=== PATIENT | male | born 1955 | race African-American/Black ===

== ENCOUNTER 2016-08-25 04:20 | Emergency (ER) | payer BC ==
[2016-08-25] MEDS ORDERED: PANTOPRAZOLE SODIUM 40 MG VIAL IV PRN (05:03)
[2016-08-25] MEDS ORDERED: NORMAL SALINE 1000 ML 1,000 ML IV PRN (05:03)
[2016-08-25] MEDS ORDERED: ONDANSETRON HCL INJ/PF 4 MG/2 ML SDV IV ONE (05:03)
[2016-08-25] MEDS ORDERED: PANTOPRAZOLE SODIUM 40 MG VIAL IV ONE (05:03)
--- NOTE | 2016-08-25 05:16 | ER Document Report ---
ED Medical Screen (RME) - General Chief Complaint: Vomiting Stated Complaint: VOMITING BLOOD Time seen by provider: 05:15 Mode of Arrival: Ambulatory Information source: Patient TRAVEL OUTSIDE OF THE [place] IN LAST 30 DAYS: No - HPI Patient complains to provider of: vomiting blood, history of ascites/cirrhosis, esophageal varices - Related Data Allergies/Adverse Reactions: No Known Drug Allergies Allergy (Verified 02/13/12 14:54) Past Medical History - Social History Chew tobacco use (# tins/day): No Frequency of alcohol use: None Drug Abuse: None - Past Medical History Cardiac Medical History: Reports: Hx Coronary Artery Disease - stent, Hx Heart Attack - ? 7 yrs ago, Hx Hypercholesterolemia, Hx Hypertension - meds x 7 yrs Denies: Hx Atrial Fibrillation, Hx Congestive Heart Failure, Hx Peripheral Vascular Disease, Hx Heart Murmur Pulmonary Medical History: Reports: Hx Pneumonia Denies: Hx Asthma, Hx Bronchitis, Hx COPD, Hx Tuberculosis Neurological Medical History: Denies: Hx Cerebrovascular Accident, Hx Seizures Renal/ Medical History: Denies: Hx Benign Prostatic Hyperplasia, Hx End Stage Renal Disease, Hx Kidney Stones, Hx Peritoneal Dialysis Malignancy Medical History: Denies Hx Leukemia GI Medical History: Reports: Hx Gastroesophageal Reflux Disease. Denies: Hx Crohn's Disease, Hx Irritable Bowel, Hx Liver Failure, Hx Ulcer Musculoskeltal Medical History: Denies Hx Arthritis Infectious Medical History: Denies: Hx HIV Past Surgical History: Reports: Hx Cardiac Catheterization - stents 2008, Hx Cardiac Surgery - Stent. Denies: Hx Colostomy, Hx Pacemaker - Immunizations Hx Diphtheria, Pertussis, Tetanus Vaccination: Yes Physical Exam - Vital signs Vitals: Temp Pulse Resp BP Pulse Ox 97.6 F 68 16 99/62 L 84 L 08/25/16 04:54 08/25/16 04:54 08/25/16 04:54 08/25/16 04:54 08/25/16 04:54 Course - Vital Signs Vital signs: Temp Pulse Resp BP Pulse Ox 97.6 F 68 16 99/62 L 84 L 08/25/16 04:54 08/25/16 04:54 08/25/16 04:54 08/25/16 04:54 08/25/16 04:54
[2016-08-25] MEDS ORDERED: NORMAL SALINE 500 ML with OCTREOTIDE ACETATE 500 MCG IV PRN ×6 (05:21→11:00)
[2016-08-25] MEDS ORDERED: OCTREOTIDE ACETATE INJ/PF 100 MCG/1 ML SDV IV ONE (05:21)
--- NOTE | 2016-08-25 05:29 | ER Document Report ---
Doctor's Note Notes: 08/25/16 05:27 Patient is a pleasant 61-year-old male who presents for complaint of vomiting blood 6 times. He's been vomiting up with red blood and clots. Last emesis was proximately 2 hours ago. No abdominal pain. No chest pain. Has history of esophageal varices. Had some varices clipped 6 years ago. He's not had a scope since than. He was followed by Dr. Mohan, but has not seen him in many years due to insurance issues. Patient has no other complaints at this time. Only blood thinning medication he takes is aspirin. He does have a history of cirrhosis of the liver. He has not drank alcohol in 5 years. On exam patient is well-appearing. His heart rate is normal. His blood pressure is normal. He is currently not actively vomiting blood. We'll start him on octreotide drip. I will check his blood work. Laboratory evaluation will be started for the morning ER physician upon his arrival. Patient will be closely monitored until the morning ER physician arrives. 08/25/16 05:28 Dictation of this chart was performed using voice recognition software; therefore, there may be some unintended grammatical errors.
[2016-08-25] MEDS ORDERED: NORMAL SALINE IV PRN ×2 (06:14)
[2016-08-25] MEDS ORDERED: OCTREOTIDE ACETATE IV PRN ×2 (06:14)
[2016-08-25] MEDS ORDERED: OCTREOTIDE ACETATE INJ/PF 100 MCG/1 ML SDV IV PRN (06:16)
[2016-08-25 06:17] LABS: PROTHROMBIN TIME 21.9 SEC (11.4-15.4)
[2016-08-25 06:34] LABS: ALANINE AMINOTRANSFERASE 45 U/L (21-72); ALBUMIN 2.4 g/dL (3.5-5.0); ALKALINE PHOSPHATASE 105 U/L (38-126); ANION GAP 8 (5-19); ASPARTATE AMINO TRANSFERASE 78 U/L (17-59); BILIRUBIN,TOTAL 2.6 mg/dL (0.2-1.3); BLOOD UREA NITROGEN 24 mg/dL (7-20); CALCIUM 8.5 mg/dL (8.4-10.2); CARBON DIOXIDE 23 mmol/L (22-30); CHLORIDE 108 mmol/L (98-107); CREATININE RESULT 0.71 mg/dL (0.52-1.25); GLUCOSE 92 mg/dL (75-110); LIPASE 173.5 U/L (23-300); POTASSIUM 4.4 mmol/L (3.6-5.0); SODIUM 139.4 mmol/L (137-145); TOTAL PROTEIN 6.7 g/dL (6.3-8.2)
[2016-08-25 06:42] LABS: ALCOHOL < 10 mg/dL (NONE DETECTED)
[2016-08-25 06:47] LABS: ABSOLUTE EOSINOPHILS # (AUTO) 0.1 10^3/uL (0.0-0.6); ABSOLUTE LYMPHOCYTES (AUTO) 0.4 10^3/uL (0.5-4.7); ABSOLUTE MONOCYTES (AUTO) 0.5 10^3/uL (0.1-1.4); ABSOLUTE NEUT (AUTO) 4.7 10^3/uL (1.7-8.2); BASOPHILS % (AUTO) 0.7 % (0-2); HEMATOCRIT 23.7 % (37.9-51.0); HEMOGLOBIN 8.1 g/dL (13.5-17.0); HGB HCT DIFFERENCE 0.6; LYMPHOCYTES % (AUTO) 7.6 % (13-45); MEAN CORPUSCULAR HEMOGLOBIN 31.9 pg (27.0-33.4); MEAN CORPUSCULAR VOLUME 94 fl (80-97); MONOCYTES % (AUTO) 8.6 % (3-13); RED BLOOD COUNT 2.52 10^6/uL (4.35-5.55); RED CELL DISTRIBUTION WIDTH 14.3 % (11.5-14.0); SEGMENTED NEUTROPHILS % (AUTO) 82.1 % (42-78); WHITE BLOOD COUNT 5.7 10^3/uL (4.0-10.5)
[2016-08-25] MEDS ORDERED: NORMAL SALINE 250 ML IV PRN ×2 (08:22)
[2016-08-25 08:49] LABS: APPEARANCE,URINE CLEAR; BILIRUBIN,URINE NEGATIVE (NEGATIVE); GLUCOSE, URINE NEGATIVE (NEGATIVE); KETONES,URINE TRACE mg/dL (NEGATIVE); LEUKOCYTE ESTERASE,URINE NEGATIVE (NEGATIVE); NITRITE,URINE NEGATIVE (NEGATIVE); PROTEIN,URINE NEGATIVE (NEGATIVE); UROBILINOGEN,URINE NEGATIVE mg/dL (<2.0)
[2016-08-25] MEDS ORDERED: NORMAL SALINE 1000 ML 1,000 ML IV ONE (09:56)
--- NOTE | 2016-08-25 10:26 | ER Document Report ---
ED General - General Chief Complaint: Vomiting Stated Complaint: VOMITING BLOOD Mode of Arrival: Ambulatory TRAVEL OUTSIDE OF THE [place] IN LAST 30 DAYS: No - HPI Patient complains to provider of: vomiting blood Notes: Patient coming in to our facility today after vomiting blood. Patient has a history of liver cirrhosis due to alcoholism has a history of variceal bleeds and passed states last time he had any prescription or banding performed was 2011. Patient states this morning workup vomited bright red blood with blood clots approximate 6 times. Patient was initially seen and evaluated by the night physician patient was started on octreotide and Protonix drip. Upon my evaluation patient is alert oriented with no complaints. Patient states last time he had any scopes done was performed here this facility by Dr. Mohan. Patient denies fevers chills nausea vomiting abdominal pain chest pain at this time. - Related Data Allergies/Adverse Reactions: No Known Drug Allergies Allergy (Verified 02/13/12 14:54) Past Medical History - General Information source: Patient - Social History Smoking Status: Never Smoker Chew tobacco use (# tins/day): No Frequency of alcohol use: None Drug Abuse: None Family History: Reviewed & Not Pertinent Patient has suicidal ideation: No Patient has homicidal ideation: No - Past Medical History Cardiac Medical History: Reports: Hx Coronary Artery Disease - stent, Hx Heart Attack - ? 7 yrs ago, Hx Hypercholesterolemia, Hx Hypertension - meds x 7 yrs Denies: Hx Atrial Fibrillation, Hx Congestive Heart Failure, Hx Peripheral Vascular Disease, Hx Heart Murmur Pulmonary Medical History: Reports: Hx Pneumonia Denies: Hx Asthma, Hx Bronchitis, Hx COPD, Hx Tuberculosis Neurological Medical History: Denies: Hx Cerebrovascular Accident, Hx Seizures Renal/ Medical History: Denies: Hx Benign Prostatic Hyperplasia, Hx End Stage Renal Disease, Hx Kidney Stones, Hx Peritoneal Dialysis Malignancy Medical History: Denies Hx Leukemia GI Medical History: Reports: Hx Gastroesophageal Reflux Disease. Denies: Hx Crohn's Disease, Hx Irritable Bowel, Hx Liver Failure, Hx Ulcer Musculoskeltal Medical History: Denies Hx Arthritis Infectious Medical History: Denies: Hx HIV Past Surgical History: Reports: Hx Cardiac Catheterization - stents 2008, Hx Cardiac Surgery - Stent. Denies: Hx Colostomy, Hx Pacemaker - Immunizations Hx Diphtheria, Pertussis, Tetanus Vaccination: Yes Hx Pneumococcal Vaccination: 06/17/10 Review of Systems - Review of Systems Constitutional: No symptoms reported EENT: No symptoms reported Cardiovascular: No symptoms reported Respiratory: No symptoms reported Gastrointestinal: Blood in vomit, Rectal bleeding Genitourinary: No symptoms reported Male Genitourinary: No symptoms reported Musculoskeletal: No symptoms reported Skin: No symptoms reported Hematologic/Lymphatic: No symptoms reported Neurological/Psychological: No symptoms reported -: Yes All other systems reviewed and negative Physical Exam - Vital signs Vitals: Temp Pulse Resp BP Pulse Ox 97.6 F 68 16 99/62 L 84 L 08/25/16 04:54 08/25/16 04:54 08/25/16 04:54 08/25/16 04:54 08/25/16 04:54 Interpretation: Normal - General General appearance: Appears well, Alert - HEENT Head: Normocephalic, Atraumatic Eyes: Normal Pupils: PERRL - Respiratory Respiratory status: No respiratory distress Chest status: Nontender Breath sounds: Normal Chest palpation: Normal - Cardiovascular Rhythm: Regular Heart sounds: Normal auscultation Murmur: No - Abdominal Inspection: Normal Distension: No distension Bowel sounds: Normal Tenderness: Nontender Organomegaly: No organomegaly - Rectal Stool: Black - Back Back: Normal, Nontender - Extremities General upper extremity: Normal inspection, Nontender, Normal color, Normal ROM , Normal temperature General lower extremity: Normal inspection, Nontender, Normal color, Normal ROM , Normal temperature, Normal weight bearing. No: Chon's sign - Neurological Neuro grossly intact: Yes Cognition: Normal Orientation: AAOx4 Evergreen Coma Scale Eye Opening: Spontaneous Evergreen Coma Scale Verbal: Oriented Evergreen Coma Scale Motor: Obeys Commands Evergreen Coma Scale Total: 15 Speech: Normal Motor strength normal: LUE, RUE, LLE, RLE Sensory: Normal - Psychological Associated symptoms: Normal affect, Normal mood - Skin Skin Temperature: Warm Skin Moisture: Dry Skin Color: Normal Course - Re-evaluation Re-evalutation: 08/25/16 10:24 Patient's lab work shows*bicytopenia with a hemoglobin 8.1. Type and screen was ordered ordered transfusion of 2 units of blood. Total initial nursing staff to place 2 IVs. Did discuss case with Dr. Hart of [facility] requesting 2 units of blood to be transfused for the patient is transferred. Delay in IV being established delay and type and screen being performed. Also delay in transit is no blood due to laboratory clerical error. Patient will be continually monitored here in ER. Patient's blood pressure did go to the low 100s will start patient on a fluid bolus. Patient will be transferred fused at least 2 units of blood now this time we will repeat his hemoglobin possibility transfer using 3 units of blood. Patient continues to be alert and has no complaints. 08/25/16 14:38 Patient was evaluated time transfer stable for transfer. - Vital Signs Vital signs: Temp Pulse Resp BP Pulse Ox 98.1 F 70 17 151/74 H 100 08/25/16 13:46 08/25/16 12:20 08/25/16 13:46 08/25/16 13:46 08/25/16 13:46 - Laboratory Result Diagrams: 08/25/16 10:30 08/25/16 05:56 Laboratory results interpreted by me: 08/25/16 08/25/16 08/25/16 05:56 05:56 05:56 RBC 2.52 L Hgb 8.1 L Hct 23.7 L RDW 14.3 H Plt Count 69 L Seg Neutrophils % 82.1 H Lymphocytes % 7.6 L Absolute Lymphocytes 0.4 L PT 21.9 H APTT 36.0 H Chloride 108 H BUN 24 H Total Bilirubin 2.6 H AST 78 H Albumin 2.4 L Urine Ketones Urine Ascorbic Acid Crossmatch 08/25/16 08/25/16 08/25/16 08:25 08:40 10:30 RBC 2.43 L Hgb 7.8 L Hct 22.8 L RDW 14.7 H Plt Count 51 L Seg Neutrophils % Lymphocytes % Absolute Lymphocytes PT APTT Chloride BUN Total Bilirubin AST Albumin Urine Ketones TRACE H Urine Ascorbic Acid 40 H Crossmatch See Detail 08/25/16 10:30 RBC Hgb Hct RDW Plt Count Seg Neutrophils % Lymphocytes % Absolute Lymphocytes PT APTT Chloride BUN Total Bilirubin AST Albumin Urine Ketones Urine Ascorbic Acid Crossmatch See Detail Critical Care Note - Critical Care Note Total time excluding time spent on procedures (mins): 40 Comments: Patient with multiple evaluations for GI bleed with a history of esophageal varices Discharge - Discharge Clinical Impression: history of esophageal variceals, Thrombocytopenia GI bleed Qualifiers: GI bleed type/associated pathology: unspecified gastrointestinal hemorrhage type Qualified Code(s): K92.2 - Gastrointestinal hemorrhage, unspecified Condition: Good Disposition: [facility] Referrals: VADIM KELLY MD [Primary Care Provider] - Follow up as needed
[2016-08-25 10:28] LABS: URINE BARBITURATES SCREEN NEGATIVE; URINE METHADONE SCREEN NEGATIVE; URINE OPIATES LOW NEGATIVE; URINE PHENCYCLIDINE SCREEN NEGATIVE
[2016-08-25 10:44] LABS: HEMATOCRIT 22.8 % (37.9-51.0); HGB HCT DIFFERENCE 0.6; MEAN CORPUSCULAR HGB CONC 34.1 g/dL (32.0-36.0); MEAN CORPUSCULAR VOLUME 94 fl (80-97); RED BLOOD COUNT 2.43 10^6/uL (4.35-5.55); RED CELL DISTRIBUTION WIDTH 14.7 % (11.5-14.0); WHITE BLOOD COUNT 4.7 10^3/uL (4.0-10.5)
[2016-08-25 11:07] LABS: HEMOGLOBIN 7.8 g/dL (13.5-17.0)
[2016-08-25 13:58] VITALS: BP 151/74
== END 2016-08-25 14:35 | disposition short-term general hospital (02) ==
LOC: ER 04:20
DX: K92.0 Hematemesis (principal); D69.6 Thrombocytopenia, unspecified; I10 Essential (primary) hypertension; I25.10 Atherosclerotic heart disease of native coronary artery without angina pectoris; E78.00 Pure hypercholesterolemia, unspecified; Z79.82 Long term (current) use of aspirin; I25.2 Old myocardial infarction
CPT/HCPCS: 99291; 96361; 96375; 96365; 96366; 86900; 86901; 36415; 36430; 86850; 80307 ×2; 83690; 85025; 85027; 85610; 85730; 82272; 80053; 81001; 86920; P9016; J2354 ×2; S0164; J2405; J7030; J7040

== ENCOUNTER → 2016-10-22 | Outpatient (CLI) | payer BC ==
[2016-10-22 09:20] LABS: HEMATOCRIT 32.5 % (37.9-51.0); HGB HCT DIFFERENCE 0.5; MEAN CORPUSCULAR HEMOGLOBIN 30.8 pg (27.0-33.4); MEAN CORPUSCULAR HGB CONC 33.9 g/dL (32.0-36.0); MEAN CORPUSCULAR VOLUME 91 fl (80-97); RED BLOOD COUNT 3.57 10^6/uL (4.35-5.55); RED CELL DISTRIBUTION WIDTH 15.2 % (11.5-14.0); WHITE BLOOD COUNT 3.6 10^3/uL (4.0-10.5)
[2016-10-22 09:22] LABS: PROTHROMBIN TIME 18.4 SEC (11.4-15.4)
[2016-10-22 09:40] LABS: ALANINE AMINOTRANSFERASE 53 U/L (21-72); ALBUMIN 2.9 g/dL (3.5-5.0); ALKALINE PHOSPHATASE 156 U/L (38-126); ANION GAP 7 (5-19); ASPARTATE AMINO TRANSFERASE 83 U/L (17-59); BILIRUBIN,DIRECT 0.8 mg/dL (0.0-0.4); BILIRUBIN,TOTAL 1.7 mg/dL (0.2-1.3); BLOOD UREA NITROGEN 10 mg/dL (7-20); CALCIUM 8.8 mg/dL (8.4-10.2); CARBON DIOXIDE 27 mmol/L (22-30); CHLORIDE 102 mmol/L (98-107); CREATININE RESULT 0.94 mg/dL (0.52-1.25); GLUCOSE 87 mg/dL (75-110); POTASSIUM 4.1 mmol/L (3.6-5.0); SODIUM 135.6 mmol/L (137-145); TOTAL PROTEIN 8.6 g/dL (6.3-8.2)
== END ==
LOC: OD 08:09
PROVIDERS: ATTEND Internal Medicine Gastroenterology
DX: R18.8 Other ascites (principal); K70.31 Alcoholic cirrhosis of liver with ascites
CPT/HCPCS: 36415; 80048; 80076; 82105; 85027; 85610

== ENCOUNTER → 2016-12-03 | Outpatient (CLI) | payer BC ==
[2016-12-03 09:48] LABS: HEMATOCRIT 32.6 % (37.9-51.0); HGB HCT DIFFERENCE 0.4; MEAN CORPUSCULAR HEMOGLOBIN 30.8 pg (27.0-33.4); MEAN CORPUSCULAR HGB CONC 33.6 g/dL (32.0-36.0); MEAN CORPUSCULAR VOLUME 92 fl (80-97); RED BLOOD COUNT 3.56 10^6/uL (4.35-5.55); RED CELL DISTRIBUTION WIDTH 16.1 % (11.5-14.0)
[2016-12-03 09:52] LABS: PROTHROMBIN TIME 18.2 SEC (11.4-15.4)
[2016-12-03 10:13] LABS: ALANINE AMINOTRANSFERASE 60 U/L (21-72); ALBUMIN 2.9 g/dL (3.5-5.0); ALKALINE PHOSPHATASE 163 U/L (38-126); ANION GAP 9 (5-19); ASPARTATE AMINO TRANSFERASE 97 U/L (17-59); BILIRUBIN,DIRECT 0.6 mg/dL (0.0-0.4); BLOOD UREA NITROGEN 11 mg/dL (7-20); CALCIUM 8.7 mg/dL (8.4-10.2); CARBON DIOXIDE 23 mmol/L (22-30); CHLORIDE 103 mmol/L (98-107); CREATININE RESULT 0.98 mg/dL (0.52-1.25); GLUCOSE 89 mg/dL (75-110); SODIUM 134.6 mmol/L (137-145); TOTAL PROTEIN 8.5 g/dL (6.3-8.2)
== END ==
LOC: OD 09:08
PROVIDERS: ATTEND Physician Assistant Surgical
DX: K70.31 Alcoholic cirrhosis of liver with ascites (principal); R94.5 Abnormal results of liver function studies; D69.6 Thrombocytopenia, unspecified
CPT/HCPCS: 36415; 80053; 85027; 85610

== ENCOUNTER → 2017-03-18 | Outpatient (CLI) | payer BC ==
[2017-03-18 13:40] LABS: PROTHROMBIN TIME 17.4 SEC (11.4-15.4)
[2017-03-18 13:42] LABS: HEMATOCRIT 32.9 % (37.9-51.0); HEMOGLOBIN 11.5 g/dL (13.5-17.0); HGB HCT DIFFERENCE 1.6; MEAN CORPUSCULAR VOLUME 94 fl (80-97); RED BLOOD COUNT 3.49 10^6/uL (4.35-5.55); RED CELL DISTRIBUTION WIDTH 13.8 % (11.5-14.0)
[2017-03-18 13:58] LABS: ALANINE AMINOTRANSFERASE 54 U/L (21-72); ALBUMIN 3.5 g/dL (3.5-5.0); ALKALINE PHOSPHATASE 131 U/L (38-126); ANION GAP 11 (5-19); ASPARTATE AMINO TRANSFERASE 82 U/L (17-59); BILIRUBIN,DIRECT 0.8 mg/dL (0.0-0.4); BILIRUBIN,TOTAL 1.4 mg/dL (0.2-1.3); BLOOD UREA NITROGEN 19 mg/dL (7-20); CALCIUM 9.2 mg/dL (8.4-10.2); CARBON DIOXIDE 24 mmol/L (22-30); CHLORIDE 102 mmol/L (98-107); CREATININE RESULT 1.13 mg/dL (0.52-1.25); GLUCOSE 75 mg/dL (75-110); SODIUM 136.7 mmol/L (137-145); TOTAL PROTEIN 8.6 g/dL (6.3-8.2)
== END ==
LOC: OD 12:03
PROVIDERS: ATTEND Physician Assistant Surgical
DX: I85.00 Esophageal varices without bleeding (principal); K70.31 Alcoholic cirrhosis of liver with ascites; D69.6 Thrombocytopenia, unspecified; R94.5 Abnormal results of liver function studies
CPT/HCPCS: 36415; 80053; 82105; 85027; 85610

== ENCOUNTER 2017-03-22 09:35 | Inpatient (IN) | payer BC ==
[2017-03-22] MEDS ORDERED: PANTOPRAZOLE SODIUM 40 MG VIAL IV ONE (09:42)
[2017-03-22] MEDS ORDERED: OCTREOTIDE ACETATE INJ/PF 100 MCG/1 ML SDV IV ONE ×2 (09:42→12:00)
[2017-03-22] MEDS ORDERED: NORMAL SALINE 1000 ML 1,000 ML IV PRN (09:42)
[2017-03-22] MEDS ORDERED: NORMAL SALINE 500 ML with OCTREOTIDE ACETATE 500 MCG IV PRN ×4 (09:42→12:27)
--- NOTE | 2017-03-22 09:45 | ER Document Report ---
ED Medical Screen (RME) - General Stated Complaint: VOMITING BLOOD Time Seen by Provider: 03/22/17 09:41 Mode of Arrival: Ambulatory Information source: Patient Notes: 62 yr old male hx of esophageal varices presents with 1 episode of vomiting dark blood with dark stools. Pt went to [facility] office who sent him in. I have greeted and performed a rapid initial assessment of this patient. A comprehensive ED assessment and evaluation of the patient, analysis of test results and completion of the medical decision making process will be conducted by additional ED providers. PHYSICAL EXAMINATION: GENERAL: Well-appearing, well-nourished and in no acute distress. HEAD: Atraumatic, normocephalic. EYES: Pupils equal round extraocular movements intact, conjunctiva are normal. ENT: Nares patent NECK: Normal range of motion LUNGS: No respiratory distress Musculoskeletal: Normal range of motion NEUROLOGICAL: Normal speech, normal gait. PSYCH: Normal mood, normal affect. SKIN: Warm, Dry, normal turgor, no rashes or lesions noted. TRAVEL OUTSIDE OF THE [place] IN LAST 30 DAYS: No - Related Data Allergies/Adverse Reactions: No Known Drug Allergies Allergy (Verified 02/13/12 14:54) Past Medical History - Past Medical History Cardiac Medical History: Reports: Hx Coronary Artery Disease - stent, Hx Heart Attack - ? 7 yrs ago, Hx Hypercholesterolemia, Hx Hypertension - meds x 7 yrs Denies: Hx Atrial Fibrillation, Hx Congestive Heart Failure, Hx Peripheral Vascular Disease, Hx Heart Murmur Pulmonary Medical History: Reports: Hx Pneumonia Denies: Hx Asthma, Hx Bronchitis, Hx COPD, Hx Tuberculosis Neurological Medical History: Denies: Hx Cerebrovascular Accident, Hx Seizures Renal/ Medical History: Denies: Hx Benign Prostatic Hyperplasia, Hx End Stage Renal Disease, Hx Kidney Stones, Hx Peritoneal Dialysis Malignancy Medical History: Denies Hx Leukemia GI Medical History: Reports: Hx Gastroesophageal Reflux Disease. Denies: Hx Crohn's Disease, Hx Irritable Bowel, Hx Liver Failure, Hx Ulcer Musculoskeltal Medical History: Denies Hx Arthritis Infectious Medical History: Denies: Hx HIV Past Surgical History: Reports: Hx Cardiac Catheterization - stents 2008, Hx Cardiac Surgery - Stent. Denies: Hx Colostomy, Hx Pacemaker - Immunizations Hx Diphtheria, Pertussis, Tetanus Vaccination: Yes
[2017-03-22] MEDS ORDERED: PANTOPRAZOLE SODIUM 40 MG VIAL IV PRN ×2 (09:47→12:25)
--- NOTE | 2017-03-22 10:18 | ER Document Report ---
ED GI Bleed / Rectal Pain - General Chief Complaint: Bloody Stools Stated Complaint: VOMITING BLOOD Time Seen by Provider: 03/22/17 09:41 Mode of Arrival: Ambulatory Notes: Patient is a 62-year-old male presents emergency department complaining of hematemesis. Patient states that he does have a history of esophageal varices and he states that last evening he had hematemesis 3 times and 5 bowel movements that were dark in color with blood streaks. Patient states that he called Dr. Washington to go to the emergency department for admission. At this time patient denies any dizziness, lightheadedness, je's office who recommended abdominal pain. He admits to mild nausea but otherwise states he feels fine. Past medical history significant for alcoholic cirrhosis with esophageal varices , Last GI bleed resulting from esophageal varices is approximately 3 years ago. TRAVEL OUTSIDE OF THE [place] IN LAST 30 DAYS: No - Related Data Allergies/Adverse Reactions: No Known Drug Allergies Allergy (Verified 02/13/12 14:54) Home Medications: Current Home Medications Furosemide [Lasix 40 mg Tablet] 40 mg PO DAILY 03/22/17 [History] Loratadine [Claritin 10 mg Tablet] 10 mg PO DAILY 03/22/17 [History] Nadolol [Corgard 40 mg Tablet] 20 mg PO DAILY 03/22/17 [History] Spironolactone [Aldactone] 100 mg PO DAILY 03/22/17 [History] Past Medical History - General Information source: Patient - Social History Smoking Status: Former Smoker Chew tobacco use (# tins/day): No Frequency of alcohol use: None Drug Abuse: None Family History: Reviewed & Not Pertinent - Past Medical History Cardiac Medical History: Reports: Hx Coronary Artery Disease - stent, Hx Heart Attack - ? 7 yrs ago, Hx Hypercholesterolemia, Hx Hypertension - meds x 7 yrs Denies: Hx Atrial Fibrillation, Hx Congestive Heart Failure, Hx Peripheral Vascular Disease, Hx Heart Murmur Pulmonary Medical History: Reports: Hx Pneumonia Denies: Hx Asthma, Hx Bronchitis, Hx COPD, Hx Tuberculosis Neurological Medical History: Denies: Hx Cerebrovascular Accident, Hx Seizures Renal/ Medical History: Denies: Hx Benign Prostatic Hyperplasia, Hx End Stage Renal Disease, Hx Kidney Stones, Hx Peritoneal Dialysis Malignancy Medical History: Denies Hx Leukemia GI Medical History: Reports: Hx Gastroesophageal Reflux Disease. Denies: Hx Crohn's Disease, Hx Irritable Bowel, Hx Liver Failure, Hx Ulcer Musculoskeltal Medical History: Denies Hx Arthritis Infectious Medical History: Denies: Hx HIV Past Surgical History: Reports: Hx Cardiac Catheterization - stents 2009, Hx Cardiac Surgery - Stent. Denies: Hx Colostomy, Hx Pacemaker - Immunizations Hx Diphtheria, Pertussis, Tetanus Vaccination: Yes Hx Pneumococcal Vaccination: 06/17/10 Review of Systems - Review of Systems Constitutional: No symptoms reported Cardiovascular: No symptoms reported Respiratory: No symptoms reported Gastrointestinal: See HPI -: Yes All other systems reviewed and negative Physical Exam - Vital signs Vitals: Temp Pulse Resp BP Pulse Ox 97.8 F 64 17 142/69 H 100 03/22/17 09:44 03/22/17 09:44 03/22/17 09:44 03/22/17 09:44 03/22/17 09:44 - Notes Notes: PHYSICAL EXAM GENERAL: Alert, interacts well. HEAD: Normocephalic, atraumatic. EYES: Pupils equal, round, and reactive to light. Extraocular movements intact. ENT: Oral mucosa moist, tongue midline. NECK: Full range of motion. Supple. Trachea midline. LUNGS: Clear to auscultation bilaterally, no wheezes, rales, or rhonchi. No respiratory distress. HEART: Regular rate and rhythm. No murmurs, gallops, or rubs. ABDOMEN: Soft, nondistended, nontender. No guarding, rebound, or rigidity.. Bowel sounds present in all 4 quadrants. Rectal: No evidence of external hemorrhoids. Nontender. Minimal stool within the rectal vault that is dark in color. Please see laboratory eval for stool guaiac. EXTREMITIES: Moves all 4 extremities spontaneously. No edema, radial and dorsalis pedis pulses 2/4 bilaterally. No cyanosis. NEUROLOGICAL: Alert and oriented x4. Normal speech. PSYCH: Normal affect, normal mood. SKIN: Warm, dry, normal turgor. No rashes or lesions noted. Course - Re-evaluation Re-evalutation: 03/22/17 10:36 Patient is a 62-year-old male who is seen medically stable, no acute distress afebrile. At this time patient's vital signs are stable without concerns for hypovolemic shock. Discussed with Dr. Escalante who states that he will be able to scope the patient today. Discussed case with Dr. Frank who agrees with admission to ICU. At this time patient's H&H stable at 10.8 with a hematocrit of 30. INR 1.37. Patient has received octreotide, Protonix, IV fluids. Per Dr. Armenta request, patient to receive 2 units of packed cells in the department. ICU panel is pending. 03/22/17 12:49 - Vital Signs Vital signs: Temp Pulse Resp BP Pulse Ox 97.8 F 64 17 142/69 H 100 03/22/17 09:44 03/22/17 09:44 03/22/17 09:44 03/22/17 09:44 03/22/17 09:44 - Laboratory Result Diagrams: 03/22/17 09:20 03/22/17 09:20 Laboratory results interpreted by me: 03/22/17 03/22/17 03/22/17 09:20 09:20 09:20 RBC 3.29 L Hgb 10.8 L Hct 30.9 L Plt Count 81 L Lymphocytes % 10.7 L PT BUN 28 H Total Bilirubin 2.5 H Direct Bilirubin 0.9 H AST 91 H Total Protein 8.7 H Crossmatch See Detail 03/22/17 09:20 RBC Hgb Hct Plt Count Lymphocytes % PT 17.7 H BUN Total Bilirubin Direct Bilirubin AST Total Protein Crossmatch Discharge - Discharge Clinical Impression: GI bleed Qualifiers: GI bleed type/associated pathology: unspecified gastrointestinal hemorrhage type Qualified Code(s): K92.2 - Gastrointestinal hemorrhage, unspecified Condition: Stable Disposition: ADMITTED INPATIENT Admitting Provider: Chanelle - [facility] Unit Admitted: ICU
[2017-03-22 10:25] LABS: ABSOLUTE LYMPHOCYTES (AUTO) 0.5 10^3/uL (0.5-4.7); ABSOLUTE MONOCYTES (AUTO) 0.5 10^3/uL (0.1-1.4); ABSOLUTE NEUT (AUTO) 3.7 10^3/uL (1.7-8.2); BASOPHILS % (AUTO) 0.2 % (0-2); HEMATOCRIT 30.9 % (37.9-51.0); HEMOGLOBIN 10.8 g/dL (13.5-17.0); HGB HCT DIFFERENCE 1.5; LYMPHOCYTES % (AUTO) 10.7 % (13-45); MEAN CORPUSCULAR HEMOGLOBIN 32.8 pg (27.0-33.4); MEAN CORPUSCULAR HGB CONC 34.9 g/dL (32.0-36.0); MEAN CORPUSCULAR VOLUME 94 fl (80-97); MONOCYTES % (AUTO) 10.7 % (3-13); RED BLOOD COUNT 3.29 10^6/uL (4.35-5.55); SEGMENTED NEUTROPHILS % (AUTO) 77.4 % (42-78); WHITE BLOOD COUNT 4.8 10^3/uL (4.0-10.5)
[2017-03-22 10:41] LABS: ALANINE AMINOTRANSFERASE 57 U/L (21-72); ALBUMIN 3.6 g/dL (3.5-5.0); ALKALINE PHOSPHATASE 126 U/L (38-126); ANION GAP 10 (5-19); ASPARTATE AMINO TRANSFERASE 91 U/L (17-59); BILIRUBIN,DIRECT 0.9 mg/dL (0.0-0.4); BILIRUBIN,TOTAL 2.5 mg/dL (0.2-1.3); BLOOD UREA NITROGEN 28 mg/dL (7-20); CALCIUM 9.8 mg/dL (8.4-10.2); CARBON DIOXIDE 24 mmol/L (22-30); CHLORIDE 104 mmol/L (98-107); CREATININE RESULT 1.09 mg/dL (0.52-1.25); GLUCOSE 96 mg/dL (75-110); POTASSIUM 4.9 mmol/L (3.6-5.0); SODIUM 137.5 mmol/L (137-145); TOTAL PROTEIN 8.7 g/dL (6.3-8.2)
[2017-03-22 10:42] LABS: ALCOHOL < 10 mg/dL (NONE DETECTED)
[2017-03-22] MEDS ORDERED: NORMAL SALINE 250 ML IV PRN (10:54)
[2017-03-22] MEDS ORDERED: ONDANSETRON HCL INJ/PF 4 MG/2 ML SDV IV ONE (10:58)
[2017-03-22 10:59] LABS: PROTHROMBIN TIME 17.7 SEC (11.4-15.4)
[2017-03-22] MEDS ORDERED: ACETAMINOPHEN 325 MG TABLET PO PRN (12:11)
[2017-03-22] MEDS ORDERED: DEXTROSE 50%-WATER 25 GM/50 ML DISP.SYRIN IV PRN ×2 (12:11)
[2017-03-22] MEDS ORDERED: GLUCAGON,HUMAN RECOMB 1 MG INJ SUBCUT PRN (12:11)
[2017-03-22] MEDS ORDERED: DEXTROSE 40% GEL 15 GM TUBE PO PRN ×2 (12:11)
--- NOTE | 2017-03-22 12:47 | PDOC H&P ---
History of Present Illness Admission Date/PCP: 03/22/17 11:06 VADIM KELLY Patient complains of: Vomiting and Dark Stools History of Present Illness: DONA SOLIS is a 62 year old male presents with complaint of vomiting up coffee ground debris last night and having dark stools with bad odor. Patient states that he vomited one time but lasted for approximately 7 minutes patient states that he has had 5 episodes of diarrhea. Patient reports that he does have history of esophageal bleeding which required banding patient states he also has felt weak since yesterday and has had to rest more frequently. Received call from the emergency room where patient was placed on PPI drip and octreotide. Patient's INR was 1.[address] Ava MELENDREZ contacted. Past Medical History Cardiac Medical History: Reports: Coronary Artery Disease - stent, Myocardial Infarction - ? 7 yrs ago, Hyperlipidema, Hypertension - meds x 7 yrs Denies: Atrial Fibrillation, Congestive Heart Failure, Peripheral Vascular Disease, Heart Murmur Pulmonary Medical History: Reports: Pneumonia Denies: Asthma, Bronchitis, Chronic Obstructive Pulmonary Disease (COPD), Tuberculosis Neurological Medical History: Denies: Seizures Renal/ Medical History: Denies: End Stage Renal Disease Malignancy Medical History: Denies: Leukemia GI Medical History: Reports: Gastroesophageal Reflux Disease Denies: Crohn's Disease Musculoskeltal Medical History: Denies: Arthritis Hematology: Reports: Anemia - on iron now/blood 04/2013 Denies: Hemophilia, Sickle Cell Disease Infectious Medical History: Denies: HIV Past Surgical History Past Surgical History: Reports: Cardiac Catheterization - stents 2008 Denies: Colostomy, Pacemaker Social History Smoking Status: Former Smoker Hx Recreational Drug Use: No Hx Prescription Drug Abuse: No Family History Family History: Reviewed & Not Pertinent Parental Family History Reviewed: Yes Children Family History Reviewed: Yes Sibling(s) Family History Reviewed.: Yes Medication/Allergy Home Medications: Furosemide [Lasix 40 mg Tablet] 40 mg PO DAILY 03/22/17 Loratadine [Claritin 10 mg Tablet] 10 mg PO DAILY 03/22/17 Nadolol [Corgard 40 mg Tablet] 20 mg PO DAILY 03/22/17 Spironolactone [Aldactone] 100 mg PO DAILY 03/22/17 Allergies/Adverse Reactions: No Known Drug Allergies Allergy (Verified 02/13/12 14:54) Review of Systems Constitutional: PRESENT: weakness Eyes: ABSENT: visual disturbances Ears: ABSENT: hearing changes Cardiovascular: ABSENT: chest pain, dyspnea on exertion, edema, orthropnea, palpitations Gastrointestinal: PRESENT: coffee ground emesis, diarrhea, vomiting. ABSENT: abdominal pain, constipation, hematemesis, hematochezia, nausea Genitourinary: ABSENT: dysuria, hematuria Musculoskeletal: ABSENT: joint swelling Integumentary: ABSENT: rash, wounds Neurological: ABSENT: abnormal gait, abnormal speech, confusion, dizziness, focal weakness, syncope Psychiatric: ABSENT: anxiety, depression, homidical ideation, suicidal ideation Endocrine: ABSENT: cold intolerance, heat intolerance, polydipsia, polyuria Hematologic/Lymphatic: ABSENT: easy bleeding, easy bruising Physical Exam Vital Signs: Temp Pulse Resp BP Pulse Ox 97.8 F 64 17 142/69 H 100 03/22/17 09:44 03/22/17 09:44 03/22/17 09:44 03/22/17 09:44 03/22/17 09:44 General appearance: PRESENT: no acute distress, thin Head exam: PRESENT: atraumatic, normocephalic Eye exam: PRESENT: conjunctiva pink, EOMI. ABSENT: scleral icterus Ear exam: PRESENT: normal external ear exam Mouth exam: PRESENT: moist, tongue midline Neck exam: ABSENT: carotid bruit, JVD, lymphadenopathy, thyromegaly Respiratory exam: PRESENT: clear to auscultation mike. ABSENT: rales, rhonchi, wheezes Pulses: PRESENT: normal dorsalis pedis pul Vascular exam: PRESENT: normal capillary refill GI/Abdominal exam: PRESENT: tenderness, other - tenderness to palpation Rectal exam: PRESENT: deferred Extremities exam: PRESENT: full ROM. ABSENT: calf tenderness, clubbing, pedal edema Neurological exam: PRESENT: alert, awake, oriented to person, oriented to place , oriented to time, oriented to situation, CN II-XII grossly intact. ABSENT: motor sensory deficit Psychiatric exam: PRESENT: appropriate affect, normal mood. ABSENT: homicidal ideation, suicidal ideation Skin exam: PRESENT: dry, intact, warm. ABSENT: cyanosis, rash Assessment & Plan - Diagnosis (1) GI bleed Qualifiers: GI bleed type/associated pathology: unspecified gastrointestinal hemorrhage type Qualified Code(s): K92.2 - Gastrointestinal hemorrhage, unspecified Is this a current diagnosis for this admission?: Yes Plan: Acute GI bleed in setting of History esophageal varices: Patient will be transfused 2 units of packed RBCs with 2 units on hold. Patient will have CBCs every 4 hours. Patient will continue on PPI drip. Patient will continue on octreotide drip. GI has been consulted and is planning to scope patient. Patient will be admitted to ICU. Patient does have 2 IV access lines. (2) Esophageal varices Is this a current diagnosis for this admission?: Yes Plan: Secondary to EtOH abuse: GI will scope patient today. Patient is on PPI and octreotide drip. (3) Anemia Qualifiers: Anemia type: unspecified type Qualified Code(s): D64.9 - Anemia, unspecified Is this a current diagnosis for this admission?: Yes Plan: Secondary to acute upper GI bleed: We will monitor closely CBCs every 4 hours. Patient will be transfused 2 units of packed RBCs with 2 units on hold. Concerned that patient's hemoglobin does not reflect patient's true hemoglobin level due to acute bleed. (4) Moderate protein malnutrition Is this a current diagnosis for this admission?: Yes Plan: Once patient has been cleared to eat will order Ensure 3 times daily (5) Cirrhosis Is this a current diagnosis for this admission?: Yes Plan: Secondary to EtOH abuse: Patient has not drank for more than 6 years will monitor patient throughout hospitalization. (6) Thrombocytopenia Is this a current diagnosis for this admission?: Yes Plan: Secondary to cirrhosis of the liver secondary to EtOH: Supportive care. (7) DVT prophylaxis Is this a current diagnosis for this admission?: Yes Plan: SCDs. No pharmacological anticoagulation ordered due to patient actively bleeding. - Time Time Spent: 30 to 50 Minutes Anticipated discharge: Home
[2017-03-22] MEDS ORDERED: PHYTONADIONE INJ 1 MG/0.5 ML DISP.SYRIN INJ ONE (12:51)
[2017-03-22] MEDS ORDERED: INFLUENZA ADLT QUAD (36MOS+) 2017-18 VAC 0.5 ML SYR IM PRN (14:28)
[2017-03-22] MEDS ORDERED: NALOXONE HCL INJ/PF 0.4 MG/1 ML SDV ONE ×2 (14:30→16:13)
[2017-03-22] MEDS ORDERED: PHYTONADIONE INJ 10 MG/1 ML AMPULE SUBCUT ONE (14:30)
[2017-03-22] MEDS ORDERED: EPINEPHRINE INJ 1 MG/10 ML DISP.SYRIN ONE (14:31)
[2017-03-22] MEDS ORDERED: GLUCAGON,HUMAN RECOMB 1 MG INJ ONE (14:31)
[2017-03-22] MEDS ORDERED: FLUMAZENIL INJ 0.5 MG/5 ML VIAL ONE (14:31)
[2017-03-22] MEDS: MIDAZOLAM 2 MG/2 ML INJ ONE ×3 (15:26→15:38)
[2017-03-22] MEDS: FENTANYL CITRATE INJ/PF 100 MCG/2 ML AMPUL ONE ×2 (15:28→15:34)
--- NOTE | 2017-03-22 15:48 | PDOC CONSULTATION ---
Consultation Consult Date: 03/22/17 History of Present Illness Admission Date/PCP: 03/22/17 12:11 VADIM KELLY History of Present Illness: This is a 62-year-old patient was admitted to the emergency room with hematemesis and melena. He had 2 episodes of hematemesis at home and 3-4 episodes of black stools. On admission his hemoglobin was 10.8 while it was 11.5 on 03/18/17. He is INR was 1.37 on admission. He has a history of esophageal variceal bleeding over the last few years. His first episode of bleeding was in 2011. He had 5 EGDs with rubberbanding in 2011 and I only know of another EGD from August of this year and will maintain that did not show significant varices. He had been doing well for many months on diuretics and nadolol. He had 2 colonoscopies in 2011 that was unremarkable and another colonoscopy in 2012 that showed significant rectal varices with no bleeding. Past Medical History Past Medical History: Alcoholic cirrhosis, gallstones, coronary artery disease, hypertension, hypercholesterolemia, esophageal varices, rectal varices, ascites, portal hypertension Cardiac Medical History: Reports: Coronary Artery Disease - stent, Myocardial Infarction - ? 7 yrs ago, Hyperlipidema, Hypertension - meds x 7 yrs Denies: Atrial Fibrillation, Congestive Heart Failure, Peripheral Vascular Disease, Heart Murmur Pulmonary Medical History: Reports: Pneumonia Denies: Asthma, Bronchitis, Chronic Obstructive Pulmonary Disease (COPD), Tuberculosis Neurological Medical History: Denies: Seizures Renal/ Medical History: Denies: End Stage Renal Disease Malignancy Medical History: Denies: Leukemia GI Medical History: Reports: Gastroesophageal Reflux Disease Denies: Crohn's Disease Musculoskeltal Medical History: Denies: Arthritis Hematology: Reports: Anemia - on iron now/blood 04/2013 Denies: Hemophilia, Sickle Cell Disease Infectious Medical History: Denies: HIV Past Surgical History Past Surgical History: EGD with rubberbanding in June, August, November, December, February 2012, EGD without banding August 2016, colonoscopy July and January 2012 and again in 2012 Past Surgical History: Reports: Cardiac Catheterization - stents 2008 Denies: Colostomy, Pacemaker Social History Smoking Status: Former Smoker Hx Recreational Drug Use: No Hx Prescription Drug Abuse: No - Advance Directive Resuscitation Status: Full Code Family History Family History: Reviewed & Not Pertinent Parental Family History Reviewed: No Children Family History Reviewed: NA Sibling(s) Family History Reviewed.: NA Medication/Allergy Home Medications: Furosemide [Lasix 40 mg Tablet] 40 mg PO DAILY 03/22/17 Loratadine [Claritin 10 mg Tablet] 10 mg PO DAILY 03/22/17 Nadolol [Corgard 40 mg Tablet] 20 mg PO DAILY 03/22/17 Spironolactone [Aldactone] 100 mg PO DAILY 03/22/17 Allergies/Adverse Reactions: No Known Drug Allergies Allergy (Verified 02/13/12 14:54) Review of Systems All systems: reviewed and no additional remarkable complaints except as stated Physical Exam Vital Signs: Temp Pulse Resp BP Pulse Ox 98 F 70 16 118/63 100 03/22/17 15:20 03/22/17 15:20 03/22/17 15:20 03/22/17 15:20 03/22/17 15:20 Intake & Output 03/21/17 03/22/17 03/23/17 06:59 06:59 06:59 Intake Total 350 Output Total 175 Balance 175 Weight 52.3 kg Exam: General: Patient is alert and looks well. HEENT: There is some pallor but no jaundice. PERRLA. Oropharynx normal Respiratory: No chest deformity. No respiratory distress. Chest wall palpitation was unremarkable. Breath sounds were normal Cardiovascular: Heart sounds 1 and 2 normal with no murmurs. Abdominal: Not distended. Soft and nontender. Liver and spleen not palpable. No ascites demonstrated. Bowel sounds active. Rectal examination was deferred. Extremities: No edema Neurological: Alert and oriented x4. Grossly nonfocal. Normal speech Skin: No significant rash Psychological: Normal affect Assessment & Plan - Diagnosis (1) Acute GI bleeding Is this a current diagnosis for this admission?: Yes Plan: He had hematemesis and black stools within the last 24 hours. His hemoglobin has not changed that much compared with 4 days ago. He was started on octreotide in the emergency room and will undergo emergent EGD. He will continue with nadolol as outpatient. His admission heart rate was in the early 60s (2) Esophageal varices Is this a current diagnosis for this admission?: Yes Plan: His last EGD in August of this year did not show significant varices. (3) Cirrhosis Qualifiers: Hepatic cirrhosis type: alcoholic cirrhosis Is this a current diagnosis for this admission?: Yes (4) Thrombocytopenia Is this a current diagnosis for this admission?: Yes
--- NOTE | 2017-03-22 15:55 | Operative Report ---
Operative Report DATE OF SURGERY: 03/22/17 Operative Report: Pre-op diagnosis: Hematemesis and melena with history of esophageal varices Post-op diagnosis: 1. Single small esophageal varix Surgery: Esophagogastroduodenoscopy with variceal banding Medications: Versed 3mg Fentanyl 100mcg IV push Tissue removed: None Procedure: After informed consent obtained from patient, the throat was sprayed with Hurricane and conscious sedation was achieved. The upper endoscope was inserted into the esophagus under direct vision and advanced into the stomach. The duodenum was entered and examined to the second part. Endoscope was then slowly pulled out of the patient as the mucosa was examined into details. Patient tolerated procedure well. Findings Esophagus: There was a small short esophageal varix with a red spot. I doubt this will explain a significant bleed but the varix was banded twice. There was evidence of scarring from previous banding. Antrum: Normal Body: Normal Fundus: Normal Duodenum first part: Normal Duodenum second part: Normal Plan: Continue octreotide until tomorrow and continue nadolol. Repeat EGD in 6 months OPERATION: .
[2017-03-22] MEDS: NORMAL SALINE 100 ML with PANTOPRAZOLE SODIUM 80 MG IV PRN ×2 (17:33)
[2017-03-22] MEDS: SUCRALFATE SUSP 1 GM/10 ML UDCUP PO SCH (18:30)
[2017-03-22] MEDS: NORMAL SALINE 1000 ML 1,000 ML IV PRN (18:31)
[2017-03-22 20:23] LABS: HEMATOCRIT 31.7 % (37.9-51.0); HEMOGLOBIN 10.9 g/dL (13.5-17.0); MEAN CORPUSCULAR HEMOGLOBIN 31.3 pg (27.0-33.4); MEAN CORPUSCULAR HGB CONC 34.5 g/dL (32.0-36.0); MEAN CORPUSCULAR VOLUME 91 fl (80-97); RED BLOOD COUNT 3.48 10^6/uL (4.35-5.55); RED CELL DISTRIBUTION WIDTH 16.1 % (11.5-14.0)
[2017-03-23 00:42] LABS: HEMATOCRIT 30.4 % (37.9-51.0); HEMOGLOBIN 10.7 g/dL (13.5-17.0); HGB HCT DIFFERENCE 1.7; MEAN CORPUSCULAR HEMOGLOBIN 31.4 pg (27.0-33.4); MEAN CORPUSCULAR HGB CONC 35.1 g/dL (32.0-36.0); MEAN CORPUSCULAR VOLUME 90 fl (80-97); RED BLOOD COUNT 3.39 10^6/uL (4.35-5.55); RED CELL DISTRIBUTION WIDTH 16.1 % (11.5-14.0)
[2017-03-23] MEDS: NORMAL SALINE 100 ML with PANTOPRAZOLE SODIUM 80 MG IV PRN ×6 (01:36→22:47)
[2017-03-23] MEDS: SUCRALFATE SUSP 1 GM/10 ML UDCUP PO SCH ×4 (02:10→17:28)
[2017-03-23 04:38] LABS: HEMATOCRIT 29.7 % (37.9-51.0); HEMOGLOBIN 10.4 g/dL (13.5-17.0); HGB HCT DIFFERENCE 1.5; MEAN CORPUSCULAR HEMOGLOBIN 31.6 pg (27.0-33.4); MEAN CORPUSCULAR HGB CONC 34.9 g/dL (32.0-36.0); MEAN CORPUSCULAR VOLUME 91 fl (80-97); PROTHROMBIN TIME 20.7 SEC (11.4-15.4); RED BLOOD COUNT 3.27 10^6/uL (4.35-5.55); RED CELL DISTRIBUTION WIDTH 16.1 % (11.5-14.0); WHITE BLOOD COUNT 4.5 10^3/uL (4.0-10.5)
[2017-03-23 04:39] LABS: PARTIAL THROMBOPLASTIN TIME 41.6 SEC (23.5-35.8)
[2017-03-23 04:44] LABS: ALANINE AMINOTRANSFERASE 48 U/L (21-72); ALBUMIN 2.1 g/dL (3.5-5.0); ALKALINE PHOSPHATASE 73 U/L (38-126); ANION GAP 7 (5-19); ASPARTATE AMINO TRANSFERASE 69 U/L (17-59); BILIRUBIN,DIRECT 0.6 mg/dL (0.0-0.4); BILIRUBIN,TOTAL 1.7 mg/dL (0.2-1.3); BLOOD UREA NITROGEN 26 mg/dL (7-20); CALCIUM 7.8 mg/dL (8.4-10.2); CARBON DIOXIDE 18 mmol/L (22-30); CHLORIDE 115 mmol/L (98-107); CREATININE RESULT 1.13 mg/dL (0.52-1.25); GLUCOSE 98 mg/dL (75-110); SODIUM 140.2 mmol/L (137-145); TOTAL PROTEIN 5.8 g/dL (6.3-8.2)
[2017-03-23 08:56] LABS: HEMATOCRIT 30.4 % (37.9-51.0); HEMOGLOBIN 10.5 g/dL (13.5-17.0); HGB HCT DIFFERENCE 1.1; MEAN CORPUSCULAR HGB CONC 34.4 g/dL (32.0-36.0); MEAN CORPUSCULAR VOLUME 90 fl (80-97); RED BLOOD COUNT 3.37 10^6/uL (4.35-5.55); RED CELL DISTRIBUTION WIDTH 16.7 % (11.5-14.0); WHITE BLOOD COUNT 4.5 10^3/uL (4.0-10.5)
[2017-03-23] MEDS: PHYTONADIONE 5 MG TABLET PO SCH (09:02)
[2017-03-23] MEDS: NADOLOL 40 MG TABLET PO SCH (09:14)
[2017-03-23] MEDS: NORMAL SALINE 1000 ML 1,000 ML IV PRN (09:14)
--- NOTE | 2017-03-23 11:35 | PDOC PROGRESS REPORT ---
Subjective Progress Note for:: 03/23/17 Subjective:: Patient reports that he is feeling much better today. Nursing overnight states that there were no issues. Physical Exam Vital Signs: Temp Pulse Resp BP Pulse Ox 98 F 59 L 8 L 101/60 100 03/23/17 08:00 03/23/17 08:00 03/23/17 10:00 03/23/17 09:06 03/23/17 10:00 Intake & Output 03/22/17 03/23/17 03/24/17 06:59 06:59 06:59 Intake Total 3061 200 Output Total 500 Balance 2561 200 Weight 52.3 kg General appearance: PRESENT: no acute distress, thin Head exam: PRESENT: atraumatic, normocephalic Eye exam: PRESENT: conjunctiva pink, EOMI. ABSENT: scleral icterus Ear exam: PRESENT: normal external ear exam Mouth exam: PRESENT: moist, tongue midline Neck exam: ABSENT: carotid bruit, JVD, lymphadenopathy, thyromegaly Respiratory exam: PRESENT: clear to auscultation mike. ABSENT: rales, rhonchi, wheezes Cardiovascular exam: PRESENT: RRR. ABSENT: diastolic murmur, rubs, systolic murmur Pulses: PRESENT: normal dorsalis pedis pul Vascular exam: PRESENT: normal capillary refill GI/Abdominal exam: PRESENT: normal bowel sounds, soft Rectal exam: PRESENT: deferred Extremities exam: PRESENT: full ROM. ABSENT: calf tenderness, clubbing, pedal edema Neurological exam: PRESENT: alert, awake, oriented to person, oriented to place , oriented to time, oriented to situation, CN II-XII grossly intact. ABSENT: motor sensory deficit Psychiatric exam: PRESENT: appropriate affect, normal mood. ABSENT: homicidal ideation, suicidal ideation Skin exam: PRESENT: dry, intact, warm. ABSENT: cyanosis, rash Results Laboratory Results: 03/23/17 08:40 03/23/17 04:23 03/22/17 03/23/17 03/23/17 20:15 00:32 04:23 WBC 5.0 5.0 RBC 3.48 L 3.39 L Hgb 10.9 L 10.7 L Hct 31.7 L 30.4 L MCV 91 90 MCH 31.3 31.4 MCHC 34.5 35.1 RDW 16.1 H 16.1 H Plt Count 36 L 34 L Sodium 140.2 Potassium 4.0 Chloride 115 H Carbon Dioxide 18 L Anion Gap 7 BUN 26 H Creatinine 1.13 Est GFR ( Amer) > 60 Est GFR (Non-Af Amer) > 60 Glucose 98 Calcium 7.8 L Total Bilirubin 1.7 H AST 69 H ALT 48 Alkaline Phosphatase 73 Total Protein 5.8 L Albumin 2.1 L 03/23/17 03/23/17 04:23 08:40 WBC 4.5 4.5 RBC 3.27 L 3.37 L Hgb 10.4 L 10.5 L Hct 29.7 L 30.4 L MCV 91 90 MCH 31.6 31.0 MCHC 34.9 34.4 RDW 16.1 H 16.7 H Plt Count 34 L 37 L Sodium Potassium Chloride Carbon Dioxide Anion Gap BUN Creatinine Est GFR ( Amer) Est GFR (Non-Af Amer) Glucose Calcium Total Bilirubin AST ALT Alkaline Phosphatase Total Protein Albumin Assessment & Plan - Diagnosis (1) GI bleed Qualifiers: GI bleed type/associated pathology: unspecified gastrointestinal hemorrhage type Qualified Code(s): K92.2 - Gastrointestinal hemorrhage, unspecified Is this a current diagnosis for this admission?: Yes Plan: Acute upper GI bleed secondary to esophageal varices: On EGD patient had banding done of esophageal varices no active bleeding was noted. Patient was continued on PPI drip but octreotide drip will be discontinued today. Will transfer patient to [facility]. Continue to monitor patient's hemoglobin for at least 48 hours prior to discharge. (2) Elevated INR Is this a current diagnosis for this admission?: Yes Plan: Patient placed on vitamin K. Will continue to check INR (3) Esophageal varices Is this a current diagnosis for this admission?: Yes Plan: Patient had EGD done yesterday resulting in banding of esophageal varices however no active bleeding noted. Will discontinue octreotide drip but will continue PPI drip (4) Anemia Qualifiers: Anemia type: unspecified type Qualified Code(s): D64.9 - Anemia, unspecified Is this a current diagnosis for this admission?: Yes Plan: Hemoglobin remaining stable will continue to monitor. (5) Moderate protein malnutrition Is this a current diagnosis for this admission?: Yes Plan: Pt currently on clear liquids however once diet is advanced will add supplemental drinks. (6) Cirrhosis Qualifiers: Hepatic cirrhosis type: alcoholic cirrhosis Is this a current diagnosis for this admission?: Yes Plan: Secondary to EtOH abuse: Supportive care. We will continue patient's home medications i.e. nadolol (7) Thrombocytopenia Is this a current diagnosis for this admission?: Yes Plan: Chronic problem we will continue to monitor platelets throughout hospitalization. Thrombocytopenia secondary to patient's cirrhosis (8) DVT prophylaxis Is this a current diagnosis for this admission?: Yes Plan: SCDs - Time Time Spent with patient: 15-24 minutes Anticipated discharge: Home - Inpatient Certification Medical Necessity: Need Close Monitoring Due to Risk of Patient Decompensation, Risk of Diagnosis Which Will Require Inpatient Eval/Care/Monitoring
[2017-03-23 13:25] LABS: HEMATOCRIT 30.8 % (37.9-51.0); HEMOGLOBIN 10.6 g/dL (13.5-17.0); MEAN CORPUSCULAR HEMOGLOBIN 31.7 pg (27.0-33.4); MEAN CORPUSCULAR HGB CONC 34.5 g/dL (32.0-36.0); MEAN CORPUSCULAR VOLUME 92 fl (80-97); RED BLOOD COUNT 3.35 10^6/uL (4.35-5.55); RED CELL DISTRIBUTION WIDTH 16.8 % (11.5-14.0); WHITE BLOOD COUNT 5.1 10^3/uL (4.0-10.5)
[2017-03-23 17:41] LABS: HEMATOCRIT 29.6 % (37.9-51.0); HEMOGLOBIN 10.2 g/dL (13.5-17.0); MEAN CORPUSCULAR HEMOGLOBIN 31.6 pg (27.0-33.4); MEAN CORPUSCULAR HGB CONC 34.6 g/dL (32.0-36.0); MEAN CORPUSCULAR VOLUME 91 fl (80-97); RED BLOOD COUNT 3.24 10^6/uL (4.35-5.55); RED CELL DISTRIBUTION WIDTH 16.3 % (11.5-14.0); WHITE BLOOD COUNT 4.9 10^3/uL (4.0-10.5)
[2017-03-23 20:57] LABS: HEMATOCRIT 30.8 % (37.9-51.0); HEMOGLOBIN 10.7 g/dL (13.5-17.0); HGB HCT DIFFERENCE 1.3; MEAN CORPUSCULAR HEMOGLOBIN 31.5 pg (27.0-33.4); MEAN CORPUSCULAR HGB CONC 34.7 g/dL (32.0-36.0); MEAN CORPUSCULAR VOLUME 91 fl (80-97); RED CELL DISTRIBUTION WIDTH 16.4 % (11.5-14.0); WHITE BLOOD COUNT 5.5 10^3/uL (4.0-10.5)
[2017-03-24] MEDS: SUCRALFATE SUSP 1 GM/10 ML UDCUP PO SCH ×2 (02:04→06:35)
[2017-03-24 02:42] LABS: HEMATOCRIT 31.7 % (37.9-51.0); HEMOGLOBIN 10.8 g/dL (13.5-17.0); HGB HCT DIFFERENCE 0.7; MEAN CORPUSCULAR HEMOGLOBIN 30.8 pg (27.0-33.4); MEAN CORPUSCULAR VOLUME 91 fl (80-97); WHITE BLOOD COUNT 5.4 10^3/uL (4.0-10.5)
[2017-03-24 07:15] LABS: ALANINE AMINOTRANSFERASE 54 U/L (21-72); ALBUMIN 2.2 g/dL (3.5-5.0); ALKALINE PHOSPHATASE 88 U/L (38-126); ANION GAP 6 (5-19); ASPARTATE AMINO TRANSFERASE 75 U/L (17-59); BILIRUBIN,DIRECT 0.8 mg/dL (0.0-0.4); BILIRUBIN,TOTAL 1.8 mg/dL (0.2-1.3); BLOOD UREA NITROGEN 16 mg/dL (7-20); CALCIUM 7.8 mg/dL (8.4-10.2); CARBON DIOXIDE 20 mmol/L (22-30); CHLORIDE 113 mmol/L (98-107); CREATININE RESULT 0.98 mg/dL (0.52-1.25); GLUCOSE 89 mg/dL (75-110); POTASSIUM 3.5 mmol/L (3.6-5.0); SODIUM 139.4 mmol/L (137-145); TOTAL PROTEIN 6.1 g/dL (6.3-8.2)
[2017-03-24 08:00] LABS: PARTIAL THROMBOPLASTIN TIME 40.2 SEC (23.5-35.8); PROTHROMBIN TIME 20.8 SEC (11.4-15.4)
[2017-03-24] MEDS: NADOLOL 40 MG TABLET PO SCH (10:12)
[2017-03-24] MEDS: PHYTONADIONE 5 MG TABLET PO SCH (10:12)
[2017-03-24 11:17] VITALS: BP 120/71
--- NOTE | 2017-03-24 11:26 | PDOC DISCHARGE SUMMARY ---
General - Admit/Disc Date/PCP Admission Date/Primary Care Provider: 03/22/17 12:11 VADIM KELLY Discharge Date: 03/24/17 - Discharge Diagnosis (1) GI bleed Is this a current diagnosis for this admission?: Yes Summary: Continue to upper GI bleed due to esophageal varices status post banding: Patient was admitted to the hospital where he was given 2 units of packed RBCs 2 units were on hold. Patient was placed on octreotide drip and a Protonix drip. GI scoped patient and found no evidence of active bleeding but patient did undergo banding procedure. Patient's hemoglobins have been stable for more than 36 hours. (2) Elevated INR Is this a current diagnosis for this admission?: Yes Summary: Patient was given vitamin K to see if this would improve synthetic function however there was no change. (3) Esophageal varices Is this a current diagnosis for this admission?: Yes Summary: Status post banding: Carafate transitioned over to oral PPI and patient will need to follow-up with GI within 1 week. (4) Anemia Is this a current diagnosis for this admission?: Yes Summary: Secondary to acute blood loss anemia: Most likely related to iron deficiency. Patient will need to have hemoglobin monitored as outpatient. (5) Moderate protein malnutrition Is this a current diagnosis for this admission?: Yes Summary: Encourage supplemental drinks i.e. Ensure (6) Cirrhosis Is this a current diagnosis for this admission?: Yes Summary: Secondary to EtOH abuse. Patient has not used alcohol for 6 years per patient report. (7) Thrombocytopenia Is this a current diagnosis for this admission?: Yes Summary: Compared to cirrhosis: Supportive care - Additional Information Resuscitation Status: Full Code Discharge Diet: Cardiac Discharge Activity: Activity As Tolerated Home Medications: Furosemide [Lasix 40 mg Tablet] 40 mg PO DAILY 03/22/17 Loratadine [Claritin 10 mg Tablet] 10 mg PO DAILY 03/22/17 Nadolol [Corgard 40 mg Tablet] 20 mg PO DAILY 03/22/17 Spironolactone [Aldactone] 100 mg PO DAILY 03/22/17 Nadolol [Corgard 40 mg Tablet] 20 mg PO DAILY tablet 03/24/17 Sucralfate [Carafate] 1 gm PO DAILY #300 oral.susp 03/24/17 History of Present Illness Patient complains of: Dark sticky stools History of Present Illness: DONA SOLIS is a 62 year old male presents with complaint of vomiting up coffee ground debris last night and having dark stools with bad odor. Patient states that he vomited one time but lasted for approximately 7 minutes patient states that he has had 5 episodes of diarrhea. Patient reports that he does have history of esophageal bleeding which required banding patient states he also has felt weak since yesterday and has had to rest more frequently. Received call from the emergency room where patient was placed on PPI drip and octreotide. Patient's INR was 1.[address] Ava MELENDREZ contacted. Hospital Course Hospital Course: 62-year-old gentleman that was admitted to our facility after complaining of vomiting up blood and dark sticky stools. Patient was given 2 units of packed RBCs with 2 units on hold. Patient was placed on a PPI drip and octreotide drip. GI was consulted for evaluation. Patient underwent EGD with no active bleeding was found but patient did have banding done to esophageal varices. Patient's hemoglobin has remained stable for more than 36 hours. Patient was noted to have anemia which was secondary to acute blood loss. Patient's hemoglobin will need to be monitored as outpatient. Physical Exam Vital Signs: Temp Pulse Resp BP Pulse Ox 98.1 F 58 L 14 120/71 100 03/24/17 11:13 03/24/17 11:13 03/24/17 11:13 03/24/17 11:13 03/24/17 11:13 Intake & Output 03/23/17 03/24/17 03/25/17 06:59 06:59 06:59 Intake Total 3061 1466 Output Total 500 1725 Balance 2561 -259 Weight 52.3 kg General appearance: PRESENT: no acute distress, thin Head exam: PRESENT: atraumatic, normocephalic Eye exam: PRESENT: conjunctiva pink, EOMI. ABSENT: scleral icterus Ear exam: PRESENT: normal external ear exam Mouth exam: PRESENT: moist, tongue midline Neck exam: ABSENT: carotid bruit, JVD, lymphadenopathy, thyromegaly Respiratory exam: PRESENT: clear to auscultation mike. ABSENT: rales, rhonchi, wheezes Cardiovascular exam: PRESENT: RRR. ABSENT: diastolic murmur, rubs, systolic murmur Pulses: PRESENT: normal dorsalis pedis pul Vascular exam: PRESENT: normal capillary refill GI/Abdominal exam: PRESENT: normal bowel sounds, soft. ABSENT: distended, guarding, mass, organolmegaly, rebound, tenderness Rectal exam: PRESENT: deferred Extremities exam: PRESENT: full ROM. ABSENT: calf tenderness, clubbing, pedal edema Neurological exam: PRESENT: alert, awake, oriented to person, oriented to place , oriented to time, oriented to situation, CN II-XII grossly intact. ABSENT: motor sensory deficit Psychiatric exam: PRESENT: appropriate affect, normal mood. ABSENT: homicidal ideation, suicidal ideation Skin exam: PRESENT: dry, intact, warm. ABSENT: cyanosis, rash Results Laboratory Results: 03/24/17 02:30 03/24/17 06:31 03/23/17 03/23/17 03/23/17 12:58 17:26 20:15 WBC 5.1 4.9 Cancelled RBC 3.35 L 3.24 L Cancelled Hgb 10.6 L 10.2 L Cancelled Hct 30.8 L 29.6 L Cancelled MCV 92 91 Cancelled MCH 31.7 31.6 Cancelled MCHC 34.5 34.6 Cancelled RDW 16.8 H 16.3 H Cancelled Plt Count 38 L 37 L Cancelled Sodium Potassium Chloride Carbon Dioxide Anion Gap BUN Creatinine Est GFR ( Amer) Est GFR (Non-Af Amer) Glucose Calcium Total Bilirubin AST ALT Alkaline Phosphatase Total Protein Albumin 03/23/17 03/24/17 03/24/17 20:45 02:30 06:31 WBC 5.5 5.4 RBC 3.40 L 3.50 L Hgb 10.7 L 10.8 L Hct 30.8 L 31.7 L MCV 91 91 MCH 31.5 30.8 MCHC 34.7 34.0 RDW 16.4 H 16.0 H Plt Count 48 L 35 L Sodium 139.4 Potassium 3.5 L Chloride 113 H Carbon Dioxide 20 L Anion Gap 6 BUN 16 Creatinine 0.98 Est GFR ( Amer) > 60 Est GFR (Non-Af Amer) > 60 Glucose 89 Calcium 7.8 L Total Bilirubin 1.8 H AST 75 H ALT 54 Alkaline Phosphatase 88 Total Protein 6.1 L Albumin 2.2 L Plan Time Spent: Greater than 30 Minutes
== END 2017-03-24 12:15 | disposition home or self-care (01) | DRG 369 ==
LOC: ER 09:35 → UNDOADMIN 11:06 → EH 11:06 → ICU 13:52
PROVIDERS: ADMIT Emergency Medicine; ATTEND Emergency Medicine
PROC: 3E0234Z Introduction of Serum, Toxoid and Vaccine into Muscle, Percutaneous Approach (ICD-10-PCS; 2017-03-22)
PROC: 06L38CZ Occlusion of Esophageal Vein with Extraluminal Device, Via Natural or Artificial Opening Endoscopic (ICD-10-PCS; principal; 2017-03-22 15:30)
DX: I85.11 Secondary esophageal varices with bleeding (principal); E44.0 Moderate protein-calorie malnutrition; Z68.1 Body mass index [BMI] 19.9 or less, adult; K70.30 Alcoholic cirrhosis of liver without ascites; I25.10 Atherosclerotic heart disease of native coronary artery without angina pectoris; I10 Essential (primary) hypertension; Z95.5 Presence of coronary angioplasty implant and graft; I25.2 Old myocardial infarction; K21.9 Gastro-esophageal reflux disease without esophagitis; Z87.891 Personal history of nicotine dependence; D69.59 Other secondary thrombocytopenia; R79.1 Abnormal coagulation profile; Z23 Encounter for immunization
CPT/HCPCS: 36415; 36430; 43244; 80053; 80307; 82272; 85025; 85027; 85610; 85730; 86850; 86900; 86901; 86920; 90686; 99285; J0171; J1610; J2250; J2310; J2354; J2405; J3010; J3430; J3490; J7030; J7040; P9016; S0164

== ENCOUNTER → 2017-05-06 | Outpatient (CLI) | payer BC ==
[2017-05-06 09:43] LABS: HEMATOCRIT 30.1 % (37.9-51.0); HEMOGLOBIN 10.1 g/dL (13.5-17.0); HGB HCT DIFFERENCE 0.2; MEAN CORPUSCULAR HEMOGLOBIN 32.2 pg (27.0-33.4); MEAN CORPUSCULAR HGB CONC 33.6 g/dL (32.0-36.0); MEAN CORPUSCULAR VOLUME 96 fl (80-97); RED BLOOD COUNT 3.14 10^6/uL (4.35-5.55); RED CELL DISTRIBUTION WIDTH 17.8 % (11.5-14.0); WHITE BLOOD COUNT 3.1 10^3/uL (4.0-10.5)
[2017-05-06 09:44] LABS: PROTHROMBIN TIME 17.7 SEC (11.4-15.4)
[2017-05-08 13:12] LABS: ALANINE AMINOTRANSFERASE 55 U/L (21-72); ALBUMIN 3.2 g/dL (3.5-5.0); ALKALINE PHOSPHATASE 127 U/L (38-126); ANION GAP 14 (5-19); ASPARTATE AMINO TRANSFERASE 63 U/L (17-59); BILIRUBIN,DIRECT 0.6 mg/dL (0.0-0.4); BLOOD UREA NITROGEN 19 mg/dL (7-20); CALCIUM 8.7 mg/dL (8.4-10.2); CARBON DIOXIDE 19 mmol/L (22-30); CHLORIDE 104 mmol/L (98-107); CREATININE RESULT 1.49 mg/dL (0.52-1.25); GLUCOSE 114 mg/dL (75-110); MAGNESIUM 1.6 mg/dL (1.6-2.3); PHOSPHORUS 3.7 mg/dL (2.5-4.5); POTASSIUM 4.2 mmol/L (3.6-5.0); SODIUM 136.5 mmol/L (137-145); TOTAL PROTEIN 7.8 g/dL (6.3-8.2)
== END ==
LOC: OD 08:25
PROVIDERS: ATTEND Physician Assistant Surgical
DX: K70.31 Alcoholic cirrhosis of liver with ascites (principal); D69.6 Thrombocytopenia, unspecified; M62.838 Other muscle spasm
CPT/HCPCS: 36415; 80053; 83735; 84100; 85027; 85610

== ENCOUNTER → 2017-06-26 | Outpatient (CLI) | payer BC ==
[2017-06-26 12:15] LABS: HEMATOCRIT 31.1 % (37.9-51.0); HEMOGLOBIN 10.5 g/dL (13.5-17.0); MEAN CORPUSCULAR HEMOGLOBIN 30.9 pg (27.0-33.4); MEAN CORPUSCULAR HGB CONC 33.8 g/dL (32.0-36.0); MEAN CORPUSCULAR VOLUME 91 fl (80-97); RED BLOOD COUNT 3.41 10^6/uL (4.35-5.55); WHITE BLOOD COUNT 3.9 10^3/uL (4.0-10.5)
[2017-06-26 12:26] LABS: ALANINE AMINOTRANSFERASE 45 U/L (21-72); ALBUMIN 3.3 g/dL (3.5-5.0); ALKALINE PHOSPHATASE 144 U/L (38-126); ANION GAP 9 (5-19); ASPARTATE AMINO TRANSFERASE 68 U/L (17-59); BILIRUBIN,DIRECT 0.5 mg/dL (0.0-0.4); BILIRUBIN,TOTAL 1.2 mg/dL (0.2-1.3); BLOOD UREA NITROGEN 14 mg/dL (7-20); CALCIUM 9.4 mg/dL (8.4-10.2); CARBON DIOXIDE 24 mmol/L (22-30); CHLORIDE 103 mmol/L (98-107); GLUCOSE 82 mg/dL (75-110); POTASSIUM 4.1 mmol/L (3.6-5.0); SODIUM 136.4 mmol/L (137-145)
[2017-06-26 12:39] LABS: PLATELET COUNT 63 10^3/uL (150-450)
== END ==
LOC: OD 11:23
PROVIDERS: ATTEND Physician Assistant Surgical
DX: K70.31 Alcoholic cirrhosis of liver with ascites (principal); D69.6 Thrombocytopenia, unspecified
CPT/HCPCS: 36415; 80053; 85027

== ENCOUNTER → 2017-08-05 | Outpatient (CLI) | payer BC ==
--- NOTE | 2017-08-05 17:57 | RADIOLOGY REPORT (SQ) ---
EXAM DESCRIPTION: CT SINUSES FOR ENT COMPLETED DATE/TIME: 08/05/2017 10:34 am REASON FOR STUDY: CHRONIC SINUSITIS ( SINUS FUSION PROTOCOL) J32.9 CHRONIC SINUSITIS, UNSPECIFIED COMPARISON: None. TECHNIQUE: Noncontrast scanning through the paranasal sinuses using bone algorithm. Reconstructed MPR images reviewed. All images stored on PACS. Images acquired for image guided surgery. All CT scanners at this facility use dose modulation, iterative reconstruction, and/or weight based d osing when appropriate to reduce radiation dose to as low as reasonably achievable (ALARA). [facility]: Dose Right [facility]: CareDose [facility]: Dose Right [facility]: Teradose 4D [facility]: [employer] RADIATION DOSE: 42.3 mGy. FINDINGS: NASAL PASSAGES: Clear. No polyps or masses. Resection of the bilateral middle turbinates. OSTEOMEATAL UNITS AND NASOFRONTAL DUCTS: Patent. No agger nasi or Tiff cells. Maxillary sinus outl ets are best shown on coronal image 76. MAXILLARY SINUSES: Circumferential mucous membrane thickening is present on the right side, extending into the right maxillary sinus outlet without outlet obstruction. No significant left mucous membran e thickening. There is a dehiscence of the inferior medial left orbital floor, question old left orb ital floor fracture with protrusion of orbital fat into the bony defect best shown on coronal reconst ruction images 82-90. ETHMOID SINUSES: Well-pneumatized and clear. SPHENOID SINUSES: Hypoplastic, small in size but clear. No sphenoethmoid air cells or pneumatized pte rygoid recess. No pneumatized dorsal sella. FRONTAL SINUSES: Well-pneumatized and clear. MASTOID AIR CELLS: Clear. ORBITS: There is a dehiscence of the inferior medial left orbital floor, question old left orbital f zainab fracture with protrusion of orbital fat into the bony defect best shown on coronal reconstructio n images 82-90. Bilateral globes, intra and extraconal fat, optic nerves, extraocular muscles intact . NASAL SEPTUM: Midline. No nasal septal spurs. TEMPOROMANDIBULAR JOINTS: Normal. TURBINATES: Middle turbiinates have been resected OTHER: Bifrontal and biparietal white matter disease, age-appropriate. Old bilateral nasal bone frac tures. IMPRESSION: Evidence of prior surgery with resection of the middle turbinates Small 4 to 5 mm bony dehiscence, inferior medial left orbit TECHNICAL DOCUMENTATION: JOB ID: [id number] Quality ID # [id number]: Final reports with documentation of one or more dose reduction techniques (e.g., Au tomated exposure control, adjustment of the mA and/or kV according to patient size, use of iterative reconstruction technique) 2010 [employer]- All Rights Reserved
== END ==
LOC: RAD 09:59
PROVIDERS: ATTEND Otolaryngology
DX: J32.9 Chronic sinusitis, unspecified (principal)
CPT/HCPCS: 70486

== ENCOUNTER → 2017-09-02 | Outpatient (CLI) | payer BC | LOC: OD 12:32 | PROVIDERS: ATTEND Otolaryngology | DX: J32.9 Chronic sinusitis, unspecified (principal) | CPT/HCPCS: 36415; 82785; 86003 ==

== ENCOUNTER → 2017-09-30 | Outpatient (CLI) | payer BC ==
--- NOTE | 2017-09-30 16:32 | RADIOLOGY REPORT (SQ) ---
EXAM DESCRIPTION: CHEST PA/LATERAL COMPLETED DATE/TIME: 09/30/2017 3:42 pm REASON FOR STUDY: ENCOUNTER FOR PREPROCEDURAL RESPIRATORY EXAMINATION COMPARISON: 04/19/2013. EXAM PARAMETERS: NUMBER OF VIEWS: two views TECHNIQUE: Digital Frontal and Lateral radiographic views of the chest acquired. RADIATION DOSE: NA LIMITATIONS: none FINDINGS: LUNGS AND PLEURA: No opacities, masses or pneumothorax. No pleural effusion. MEDIASTINUM AND HILAR STRUCTURES: No masses or contour abnormalities. HEART AND VASCULAR STRUCTURES: Heart normal size. No evidence for failure. BONES: No acute findings. HARDWARE: None in the chest. OTHER: No other significant finding. IMPRESSION: NO SIGNIFICANT RADIOGRAPHIC FINDING IN THE CHEST. TECHNICAL DOCUMENTATION: JOB ID: [id number] [employer]- All Rights Reserved Reading location - IP/workstation name: [email or web address]
== END ==
LOC: OD 15:03
PROVIDERS: ATTEND Internal Medicine
DX: Z01.811 Encounter for preprocedural respiratory examination (principal)
CPT/HCPCS: 71046

== ENCOUNTER → 2017-10-16 | Outpatient (CLI) | payer BC ==
[2017-10-16 12:18] LABS: INTERNATIONAL RATION (INR) 1.36; PROTHROMBIN TIME 17.5 SEC (11.4-15.4)
[2017-10-16 12:27] LABS: ABSOLUTE EOSINOPHILS # (AUTO) 0.2 10^3/uL (0.0-0.6); ABSOLUTE LYMPHOCYTES (AUTO) 0.3 10^3/uL (0.5-4.7); ABSOLUTE MONOCYTES (AUTO) 0.4 10^3/uL (0.1-1.4); ABSOLUTE NEUT (AUTO) 1.6 10^3/uL (1.7-8.2); BASOPHILS % (AUTO) 0.6 % (0-2); EOSINOPHILS % (AUTO) 6.6 % (0-6); HEMATOCRIT 32.1 % (37.9-51.0); LYMPHOCYTES % (AUTO) 12.3 % (13-45); MEAN CORPUSCULAR HGB CONC 34.4 g/dL (32.0-36.0); MEAN CORPUSCULAR VOLUME 90 fl (80-97); MONOCYTES % (AUTO) 16.1 % (3-13); RED BLOOD COUNT 3.55 10^6/uL (4.35-5.55); RED CELL DISTRIBUTION WIDTH 14.4 % (11.5-14.0); SEGMENTED NEUTROPHILS % (AUTO) 64.4 % (42-78); TOTAL CELLS COUNTED % (AUTO) 100 %; WHITE BLOOD COUNT 2.5 10^3/uL (4.0-10.5)
[2017-10-16 12:44] LABS: ALANINE AMINOTRANSFERASE 42 U/L (21-72); ALKALINE PHOSPHATASE 140 U/L (38-126); ANION GAP 9 (5-19); ASPARTATE AMINO TRANSFERASE 70 U/L (17-59); BILIRUBIN,DIRECT 0.5 mg/dL (0.0-0.4); BLOOD UREA NITROGEN 13 mg/dL (7-20); CALCIUM 8.7 mg/dL (8.4-10.2); CARBON DIOXIDE 24 mmol/L (22-30); CHLORIDE 106 mmol/L (98-107); GLUCOSE 96 mg/dL (75-110); POTASSIUM 3.9 mmol/L (3.6-5.0); SODIUM 139.2 mmol/L (137-145)
[2017-10-16 13:24] LABS: PLATELET COUNT 53 10^3/uL (150-450)
== END ==
LOC: OD 11:33
PROVIDERS: ATTEND Physician Assistant Surgical
DX: K70.31 Alcoholic cirrhosis of liver with ascites (principal); D69.6 Thrombocytopenia, unspecified
CPT/HCPCS: 36415; 80053; 85025; 85610

== ENCOUNTER → 2017-10-28 | Outpatient (CLI) | payer BC ==
--- NOTE | 2017-10-28 08:47 | RADIOLOGY REPORT (SQ) ---
EXAM DESCRIPTION: U/S ABDOMEN LIMITED W/O DOP COMPLETED DATE/TIME: 10/28/2017 8:29 am REASON FOR STUDY: ALCOHOLIC CIRRHOSIS (K70.31) K70.31 ALCOHOLIC CIRRHOSIS OF LIVER WITH ASCITES COMPARISON: None. TECHNIQUE: Dynamic and static grayscale images acquired of the abdomen and recorded on PACS. Additio nal selected color Doppler and spectral images recorded. LIMITATIONS: None. FINDINGS: PANCREAS: No masses. Visualized pancreatic duct normal caliber. LIVER: The liver measures 12.7 cm in length. Lobulated nodular contour and diffuse increased hetero genous echogenicity to the liver parenchyma, likely related to the patient's known history of cirrhos is. LIVER VASCULATURE: Hepatopetal flow is demonstrated. GALLBLADDER: Gallstones, unchanged finding. Diffuse gallbladder wall thickening, probably related t o the presence of ascites. No pericholecystic fluid. ULTRASOUND-DETECTED FALCON'S SIGN: Negative. INTRAHEPATIC DUCTS AND COMMON DUCT: CBD 6.5 mm in diameter, upper limits of normal. INFERIOR VENA CAVA: Normal flow. AORTA: No aneurysm. RIGHT KIDNEY: The right kidney measures 10.0 cm in length, normal size. Normal echogenicity. No lori d or suspicious masses. No hydronephrosis. No calcifications. PERITONEAL AND RIGHT PLEURAL SPACE: Mild to moderate ascites. OTHER: No other significant findings. IMPRESSION: 1. As on the prior examination dated 04/30/2016, lobulated nodular contour to the liver and diffuse increased heterogenous echotexture to the liver parenchyma, likely related to the patien t's known history of cirrhosis of the liver. 2. Cholelithiasis, unchanged finding. 3 Mild to moderate ascites. TECHNICAL DOCUMENTATION: JOB ID: [id number] [employer]- All Rights Reserved Reading location - IP/workstation name: [email or web address]
== END ==
LOC: RAD 07:34
PROVIDERS: ATTEND Internal Medicine Gastroenterology
DX: K70.31 Alcoholic cirrhosis of liver with ascites (principal)
CPT/HCPCS: 76705

== ENCOUNTER 2018-03-21 11:00 | Day surgery (SDC) | payer BC ==
[2018-03-21 11:53] LABS: HEMATOCRIT 36.4 % (37.9-51.0); HEMOGLOBIN 12.5 g/dL (13.5-17.0); MEAN CORPUSCULAR HEMOGLOBIN 30.7 pg (27.0-33.4); MEAN CORPUSCULAR HGB CONC 34.3 g/dL (32.0-36.0); MEAN CORPUSCULAR VOLUME 90 fl (80-97); RED BLOOD COUNT 4.07 10^6/uL (4.35-5.55); RED CELL DISTRIBUTION WIDTH 13.6 % (11.5-14.0); WHITE BLOOD COUNT 3.3 10^3/uL (4.0-10.5)
[2018-03-21 11:54] LABS: INTERNATIONAL RATION (INR) 1.38; PROTHROMBIN TIME 17.7 SEC (11.4-15.4)
[2018-03-21 11:55] LABS: PARTIAL THROMBOPLASTIN TIME 38.8 SEC (23.5-35.8)
[2018-03-21 12:05] LABS: BLOOD UREA NITROGEN 9 mg/dL (7-20); POTASSIUM 4.1 mmol/L (3.6-5.0)
[2018-03-21 12:20] LABS: PLATELET COUNT 66 10^3/uL (150-450)
--- NOTE | 2018-03-21 13:59 | RADIOLOGY REPORT (SQ) ---
EXAM DESCRIPTION: U/S ABD PARACENTESIS COMPLETED DATE/TIME: 03/21/2018 1:39 pm REASON FOR STUDY: ASCITES COMPARISON None. LIMITATIONS: None. PROCEDURE: After obtaining informed consent, the patient was brought to the ultrasound suite. The p rocedure was performed with the patient on a gurney. Ultrasound was used to identify a prominent poc ket of ascites in the right lower quadrant. An appropriate access site was selected. The patient wa s prepped and draped in usual sterile fashion. The access site was anesthetized with 3.0 mL 1% lido loree. A Qozj-J-Kamdrdgm needle was advanced into the fluid. After aspiration of fluid the needle, the catheter was advanced off the needle into the fluid. A total of 5,000 mL of straw fluid was serge tapan. The patient tolerated the procedure well left the department in satisfactory condition. IMPRESSION: Successful ultrasound-guided paracentesis COMMENT: Patient medication list reviewed: Yes- Quality ID# [id number]:Eligible professional attests to doc umenting in the medical record they obtained, updated, or reviewed the patient's current medications. TECHNICAL DOCUMENTATION: JOB ID: [id number] [employer]- All Rights Reserved Reading location - IP/workstation name: [email or web address]
[2018-03-21 14:45] VITALS: BP 140/73
[2018-03-21 15:28] LABS: FLUID APPEARANCE CLEAR; FLUID COLOR LIGHT YELLOW; FLUID SOURCE ASCITES; FLUID TYPE PERITONEAL; FLUID VISCOSITY LIQUID
== END 2018-03-21 15:00 | disposition home or self-care (01) ==
LOC: RAD 11:00
PROVIDERS: ATTEND Internal Medicine Gastroenterology
DX: K70.31 Alcoholic cirrhosis of liver with ascites (principal); R60.0 Localized edema; I10 Essential (primary) hypertension; I25.10 Atherosclerotic heart disease of native coronary artery without angina pectoris; E78.00 Pure hypercholesterolemia, unspecified; Z79.899 Other long term (current) drug therapy; I25.2 Old myocardial infarction
CPT/HCPCS: 36415; 49083; 82565; 84132; 84520; 85027; 85610; 85730; 87070; 87075; 87205; 89050

== ENCOUNTER → 2018-04-15 | Outpatient (CLI) | payer BC, OTHER ==
[2018-04-15 12:17] LABS: ANION GAP 10 (5-19); BLOOD UREA NITROGEN 11 mg/dL (7-20); CALCIUM 8.4 mg/dL (8.4-10.2); CARBON DIOXIDE 24 mmol/L (22-30); CHLORIDE 103 mmol/L (98-107); GLUCOSE 102 mg/dL (75-110); POTASSIUM 3.7 mmol/L (3.6-5.0); SODIUM 136.6 mmol/L (137-145)
== END ==
LOC: OD 11:23
PROVIDERS: ATTEND Internal Medicine Gastroenterology
DX: K70.31 Alcoholic cirrhosis of liver with ascites (principal)
CPT/HCPCS: 36415; 80048

== ENCOUNTER 2018-04-22 07:55 | Day surgery (SDC) | payer SELFPAY ==
[~2018-04-22 07:55] MED LIST: ALBUMIN HUMAN 62.5 GM/250 ML RTUINJ IV PRN
[2018-04-22 08:44] LABS: INTERNATIONAL RATION (INR) 1.36; PROTHROMBIN TIME 17.4 SEC (11.4-15.4)
[2018-04-22 08:45] LABS: PARTIAL THROMBOPLASTIN TIME 37.9 SEC (23.5-35.8)
[2018-04-22 08:46] LABS: BLOOD UREA NITROGEN 10 mg/dL (7-20)
[2018-04-22 08:54] LABS: HEMATOCRIT 36.4 % (37.9-51.0); HEMOGLOBIN 12.6 g/dL (13.5-17.0); MEAN CORPUSCULAR HEMOGLOBIN 31.4 pg (27.0-33.4); MEAN CORPUSCULAR HGB CONC 34.8 g/dL (32.0-36.0); MEAN CORPUSCULAR VOLUME 90 fl (80-97); RED BLOOD COUNT 4.03 10^6/uL (4.35-5.55); RED CELL DISTRIBUTION WIDTH 13.9 % (11.5-14.0); WHITE BLOOD COUNT 2.9 10^3/uL (4.0-10.5)
[2018-04-22 09:00] LABS: PLATELET COUNT 58 10^3/uL (150-450)
[2018-04-22 12:35] VITALS: BP 137/71
--- NOTE | 2018-04-22 13:15 | RADIOLOGY REPORT (SQ) ---
EXAM DESCRIPTION: U/S ABD PARACENTESIS COMPLETED DATE/TIME: 04/22/2018 12:07 pm REASON FOR STUDY: ASCITES K70.31 ALCOHOLIC CIRRHOSIS OF LIVER WITH ASCITES COMPARISON: None. LIMITATIONS: None. PROCEDURE: Procedure, risks, benefit, and alternative explained to patient who then gave written con sent. The left lower abdominal wall marked using ultrasound guidance. A time-out was called for cor rect marking verification. Abdomen prepped and draped using sterile technique. Local anesthesia achi eved using 3.0 ml of 1% lidocaine injection. A 6fr Lkhi-S-Nuitscks set was introduced into the perit loera cavity. Fluid was drained. The catheter was removed and entry site was covered with sterile b andage. No immediate complications noted. Images acquired during the procedure were stored on PACS. FINDINGS: ENTRY SITE: Left lower quadrant. FLUID VOLUME: A 1000 cc FLUID ANALYSIS: Straw OTHER: Therapeutic only. IMPRESSION: SUCCESSFUL ULTRASOUND GUIDED PARACENTESIS. COMMENT: Patient medication list reviewed:Yes- Quality ID# [id number]:Eligible professional attests to docu menting in the medical record they obtained, updated, or reviewed the patient's current medications. TECHNICAL DOCUMENTATION: JOB ID: [id number] [employer]- All Rights Reserved Reading location - IP/workstation name: [email or web address]
== END 2018-04-22 12:45 | disposition home or self-care (01) ==
LOC: ASU 07:55
PROVIDERS: ATTEND Internal Medicine Gastroenterology
DX: K70.31 Alcoholic cirrhosis of liver with ascites (principal); I85.00 Esophageal varices without bleeding; I25.10 Atherosclerotic heart disease of native coronary artery without angina pectoris; E78.00 Pure hypercholesterolemia, unspecified; I10 Essential (primary) hypertension; Z79.899 Other long term (current) drug therapy; I25.2 Old myocardial infarction
CPT/HCPCS: 36415; 84520; 82565; 85027; 85610; 85730; 49083; P9047

== ENCOUNTER → 2018-05-15 | Outpatient (CLI) | payer SELFPAY ==
[2018-05-15 10:34] LABS: ANION GAP 10 (5-19); BLOOD UREA NITROGEN 11 mg/dL (7-20); CALCIUM 8.4 mg/dL (8.4-10.2); CARBON DIOXIDE 23 mmol/L (22-30); CHLORIDE 103 mmol/L (98-107); GLUCOSE 82 mg/dL (75-110); POTASSIUM 4.1 mmol/L (3.6-5.0)
== END ==
LOC: OD 08:12
PROVIDERS: ATTEND Internal Medicine Gastroenterology
DX: K70.31 Alcoholic cirrhosis of liver with ascites (principal)
CPT/HCPCS: 36415; 80048

== ENCOUNTER 2018-07-01 07:30 | Day surgery (SDC) | payer SELFPAY ==
[2018-07-01 08:29] LABS: HEMATOCRIT 30.1 % (37.9-51.0); HEMOGLOBIN 10.3 g/dL (13.5-17.0); MEAN CORPUSCULAR HEMOGLOBIN 30.1 pg (27.0-33.4); MEAN CORPUSCULAR HGB CONC 34.3 g/dL (32.0-36.0); MEAN CORPUSCULAR VOLUME 88 fl (80-97); RED BLOOD COUNT 3.43 10^6/uL (4.35-5.55); RED CELL DISTRIBUTION WIDTH 13.1 % (11.5-14.0)
[2018-07-01 08:35] LABS: INTERNATIONAL RATION (INR) 1.46; PROTHROMBIN TIME 18.4 SEC (11.4-15.4)
[2018-07-01 08:36] LABS: PARTIAL THROMBOPLASTIN TIME 40.4 SEC (23.5-35.8)
[2018-07-01 08:44] LABS: BLOOD UREA NITROGEN 13 mg/dL (7-20)
[2018-07-01 09:01] LABS: PLATELET COUNT 74 10^3/uL (150-450)
[2018-07-01] MEDS: ALBUMIN HUMAN 62.5 GM/250 ML RTUINJ IV PRN ×5 (11:35→13:43)
[2018-07-01 11:38] LABS: FLUID APPEARANCE CLEAR; FLUID COLOR YELLOW; FLUID SOURCE ASCITES; FLUID TYPE PERITONEAL; FLUID VISCOSITY LIQUID
[2018-07-01 11:57] LABS: ALANINE AMINOTRANSFERASE 31 U/L (21-72); ALBUMIN 2.7 g/dL (3.5-5.0); ALKALINE PHOSPHATASE 157 U/L (38-126); ASPARTATE AMINO TRANSFERASE 72 U/L (17-59); BILIRUBIN,DIRECT 0.6 mg/dL (0.0-0.4); BILIRUBIN,TOTAL 1.4 mg/dL (0.2-1.3); CALCIUM 8.3 mg/dL (8.4-10.2); POTASSIUM 3.1 mmol/L (3.6-5.0); SODIUM 134.8 mmol/L (137-145); TOTAL PROTEIN 7.7 g/dL (6.3-8.2)
--- NOTE | 2018-07-01 12:02 | RADIOLOGY REPORT (SQ) ---
EXAM DESCRIPTION: U/S ABD PARACENTESIS COMPLETED DATE/TIME: 07/01/2018 11:19 am REASON FOR STUDY: ASCITES K70.31 ALCOHOLIC CIRRHOSIS OF LIVER WITH ASCITES COMPARISON: None. LIMITATIONS: None. PROCEDURE: Procedure, risks, benefit, and alternative explained to patient who then gave written con sent. The left lower abdominal wall marked using ultrasound guidance. A time-out was called for cor rect marking verification. Abdomen prepped and draped using sterile technique. Local anesthesia achi eved using 3.0 ml of 1% lidocaine injection. A 6fr Qeot-B-Pxcldkss set was introduced into the perit loera cavity. Fluid was drained. The catheter was removed and entry site was covered with sterile b andage. No immediate complications noted. Images acquired during the procedure were stored on PACS. FINDINGS: ENTRY SITE: Left lower quadrant FLUID VOLUME: 8000 cc FLUID ANALYSIS: Straw OTHER: Fluid sent to the lab for testing. IMPRESSION: SUCCESSFUL ULTRASOUND GUIDED PARACENTESIS. COMMENT: Patient medication list reviewed:Yes- Quality ID# [id number]:Eligible professional attests to docu menting in the medical record they obtained, updated, or reviewed the patient's current medications. TECHNICAL DOCUMENTATION: JOB ID: [id number] [employer]- All Rights Reserved Reading location - IP/workstation name: [email or web address]
[2018-07-01 14:22] VITALS: BP 110/53
== END 2018-07-01 14:20 | disposition home or self-care (01) ==
LOC: RAD 07:30
PROVIDERS: ATTEND Internal Medicine Gastroenterology
DX: K70.31 Alcoholic cirrhosis of liver with ascites (principal); Z79.899 Other long term (current) drug therapy; E78.00 Pure hypercholesterolemia, unspecified; I10 Essential (primary) hypertension; I25.2 Old myocardial infarction; I85.00 Esophageal varices without bleeding; R60.0 Localized edema
CPT/HCPCS: 36415; 87205; 87070; 84520; 82310; 82435; 82374; 82565; 82947; 84132; 84295; 85027; 85610; 85730; 89050; 87075; 80076; 49083; P9047

== ENCOUNTER → 2018-07-14 | Outpatient (CLI) | payer SELFPAY ==
[2018-07-14 11:16] LABS: ALANINE AMINOTRANSFERASE 49 U/L (21-72); ALBUMIN 2.9 g/dL (3.5-5.0); ALKALINE PHOSPHATASE 203 U/L (38-126); ANION GAP 5 (5-19); ASPARTATE AMINO TRANSFERASE 112 U/L (17-59); BILIRUBIN,DIRECT 0.6 mg/dL (0.0-0.4); BILIRUBIN,TOTAL 1.3 mg/dL (0.2-1.3); BLOOD UREA NITROGEN 12 mg/dL (7-20); CALCIUM 8.4 mg/dL (8.4-10.2); CARBON DIOXIDE 26 mmol/L (22-30); CHLORIDE 101 mmol/L (98-107); GLUCOSE 83 mg/dL (75-110); POTASSIUM 3.9 mmol/L (3.6-5.0); SODIUM 132.4 mmol/L (137-145); TOTAL PROTEIN 7.9 g/dL (6.3-8.2)
== END ==
LOC: OD 09:25
PROVIDERS: ATTEND Physician Assistant Surgical
DX: K70.31 Alcoholic cirrhosis of liver with ascites (principal); E87.6 Hypokalemia
CPT/HCPCS: 36415; 80053

== ENCOUNTER 2018-08-08 11:31 | Emergency (ER) | payer OTHER ==
--- NOTE | 2018-08-08 12:23 | ER Document Report ---
ED Medical Screen (RME) - General Chief Complaint: Abdominal Distention Stated Complaint: SWELLING TO BODY Time Seen by Provider: 08/08/18 12:18 Primary Care Provider: MELISSA MERRITT PA-C [Primary Care Provider] - Follow up as needed Notes: Patient is a 63-year-old male that presents to the emergency department for chief complaint of abdominal cramping, and distention. ROS: Other than noted above, the 12 point review of systems was reviewed with the patient and were negative, all pertinent findings are included in the HPI. PHYSICAL EXAMINATION: Vital signs reviewed. GENERAL: Well-appearing, well-nourished and in no acute distress. HEAD: Atraumatic, normocephalic. EYES: Pupils equal round extraocular movements intact, conjunctiva are normal. ENT: Nares patent NECK: Normal range of motion CV: Heart regular rate and rhythm LUNGS: No respiratory distress Abdomen: Abdominal distention no focal tenderness to palpation, umbilical hernia appreciated Musculoskeletal: Normal range of motion NEUROLOGICAL: Normal speech PSYCH: Normal mood, normal affect. MDM: Patient seen and examined for rapid initial assessment. Vital signs reviewed. A comprehensive ED assessment and evaluation of the patient, analysis of test results and completion of the medical decision making process will be conducted by additional ED providers. *Note is created using voice recognition software and may contain spelling, syntax or grammatical errors. TRAVEL OUTSIDE OF THE [place] IN LAST 30 DAYS: No - Related Data Allergies/Adverse Reactions: No Known Drug Allergies Allergy (Verified 08/08/18 11:37) Past Medical History - Past Medical History Cardiac Medical History: Reports: Hx Coronary Artery Disease - CARDIAC STENT 2008, Hx Hypercholesterolemia, Hx Hypertension Denies: Hx Atrial Fibrillation, Hx Congestive Heart Failure, Hx Heart Attack, Hx Peripheral Vascular Disease, Hx Heart Murmur Pulmonary Medical History: Denies: Hx Asthma, Hx Bronchitis, Hx COPD, Hx Pneumonia, Hx Tuberculosis Neurological Medical History: Denies: Hx Cerebrovascular Accident, Hx Seizures Renal/ Medical History: Denies: Hx Benign Prostatic Hyperplasia, Hx End Stage Renal Disease, Hx Kidney Stones, Hx Peritoneal Dialysis Malignancy Medical History: Denies Hx Leukemia GI Medical History: Reports: Hx Gastroesophageal Reflux Disease. Denies: Hx Crohn's Disease, Hx Irritable Bowel, Hx Liver Failure, Hx Pancreatitis, Hx Ulcer Musculoskeltal Medical History: Denies Hx Arthritis Infectious Medical History: Denies: Hx HIV Past Surgical History: Reports: Hx Cardiac Catheterization - stents 2009, Hx Cardiac Surgery - Stent. Denies: Hx Colostomy, Hx Pacemaker - Immunizations Hx Diphtheria, Pertussis, Tetanus Vaccination: - UNSURE History of Influenza Vaccine for 03/2017 - 08/2017 Season: Yes Influenza Administration Date for 03/2017 - 08/2017 Season: 04/17/18 Physical Exam - Vital signs Vitals: Temp Pulse Resp BP Pulse Ox 98.1 F 68 16 113/67 97 08/08/18 11:42 08/08/18 11:42 08/08/18 11:42 08/08/18 11:42 08/08/18 11:42 Course - Vital Signs Vital signs: Temp Pulse Resp BP Pulse Ox 98.1 F 68 16 113/67 97 08/08/18 11:42 08/08/18 11:42 08/08/18 11:42 08/08/18 11:42 08/08/18 11:42 Doctor's Discharge - Discharge Referrals: MELISSA MERRITT PA-C [Primary Care Provider] - Follow up as needed
[2018-08-08 13:01] LABS: APPEARANCE,URINE CLEAR; BILIRUBIN,URINE NEGATIVE (NEGATIVE); COLOR,URINE YELLOW; GLUCOSE, URINE NEGATIVE (NEGATIVE); KETONES,URINE NEGATIVE (NEGATIVE); LEUKOCYTE ESTERASE,URINE NEGATIVE (NEGATIVE); NITRITE,URINE NEGATIVE (NEGATIVE); PROTEIN,URINE NEGATIVE (NEGATIVE); URINE SPECIFIC GRAVITY 1.005; UROBILINOGEN,URINE NEGATIVE mg/dL (<2.0)
[2018-08-08 13:03] LABS: ABSOLUTE EOSINOPHILS # (AUTO) 0.1 10^3/uL (0.0-0.6); ABSOLUTE LYMPHOCYTES (AUTO) 0.3 10^3/uL (0.5-4.7); ABSOLUTE MONOCYTES (AUTO) 0.5 10^3/uL (0.1-1.4); BASOPHILS % (AUTO) 0.4 % (0-2); EOSINOPHILS % (AUTO) 3.6 % (0-6); HEMATOCRIT 31.8 % (37.9-51.0); HEMOGLOBIN 10.9 g/dL (13.5-17.0); LYMPHOCYTES % (AUTO) 9.5 % (13-45); MEAN CORPUSCULAR HEMOGLOBIN 30.2 pg (27.0-33.4); MEAN CORPUSCULAR HGB CONC 34.1 g/dL (32.0-36.0); MEAN CORPUSCULAR VOLUME 89 fl (80-97); MONOCYTES % (AUTO) 17.5 % (3-13); RED BLOOD COUNT 3.59 10^6/uL (4.35-5.55); RED CELL DISTRIBUTION WIDTH 14.2 % (11.5-14.0); TOTAL CELLS COUNTED % (AUTO) 100 %; WHITE BLOOD COUNT 2.9 10^3/uL (4.0-10.5)
[2018-08-08 13:17] LABS: ALANINE AMINOTRANSFERASE 32 U/L (21-72); ALBUMIN 2.6 g/dL (3.5-5.0); ALKALINE PHOSPHATASE 172 U/L (38-126); ANION GAP 6 (5-19); ASPARTATE AMINO TRANSFERASE 97 U/L (17-59); BILIRUBIN,DIRECT 0.6 mg/dL (0.0-0.4); BILIRUBIN,TOTAL 1.1 mg/dL (0.2-1.3); BLOOD UREA NITROGEN 12 mg/dL (7-20); CALCIUM 8.1 mg/dL (8.4-10.2); CARBON DIOXIDE 26 mmol/L (22-30); CHLORIDE 101 mmol/L (98-107); GLUCOSE 82 mg/dL (75-110); LIPASE 378.6 U/L (23-300); POTASSIUM 3.4 mmol/L (3.6-5.0); SODIUM 132.8 mmol/L (137-145); TOTAL PROTEIN 7.4 g/dL (6.3-8.2)
--- NOTE | 2018-08-08 13:23 | RADIOLOGY REPORT (SQ) ---
EXAM DESCRIPTION: CHEST 2 VIEWS COMPLETED DATE/TIME: 08/08/2018 1:07 pm REASON FOR STUDY: shortness of breath COMPARISON: AP chest 04/19/2013 EXAM PARAMETERS: NUMBER OF VIEWS: two views TECHNIQUE: Digital Frontal and Lateral radiographic views of the chest acquired. RADIATION DOSE: NA LIMITATIONS: none FINDINGS: LUNGS AND PLEURA: No opacities, masses or pneumothorax. No pleural effusion. MEDIASTINUM AND HILAR STRUCTURES: No masses or contour abnormalities. HEART AND VASCULAR STRUCTURES: Heart normal size. No evidence for failure. Faintly radiopaque left coronary stents BONES: No acute findings. HARDWARE: None in the chest. OTHER: No other significant finding. IMPRESSION: NO ACUTE RADIOGRAPHIC FINDING IN THE CHEST. TECHNICAL DOCUMENTATION: JOB ID: [id number] [employer]- All Rights Reserved Reading location - IP/workstation name: [email or web address]
--- NOTE | 2018-08-08 13:26 | EKG REPORT ---
SEVERITY:- ABNORMAL ECG - SINUS RHYTHM VENTRICULAR PREMATURE COMPLEX INFERIOR INFARCT, OLD NONSPECIFIC T ABNORMALITIES, LATERAL LEADS PROLONGED QT INTERVAL : Confirmed by: Asher Perez MD 08-Aug-2018 13:25:15
[2018-08-08 13:53] LABS: PLATELET COUNT 79 10^3/uL (150-450)
--- NOTE | 2018-08-08 14:53 | ER Document Report ---
ED General - General Chief Complaint: Abdominal Distention Stated Complaint: SWELLING TO BODY Time Seen by Provider: 08/08/18 12:18 Primary Care Provider: MELISSA MERRITT PA-C [Primary Care Provider] - Follow up as needed Mode of Arrival: Ambulatory Information source: Patient Notes: 63 year old Male with a history of alcoholic cirrhosis and ascites who presents to the emergency department with complaints of abdominal distention. Patient states that he had a paracentesis done on 07/01/18. He had 800 cc removed. He has been following up with Dr. Escalante. His next appointment isn't until 08/16/18. He concerned that he will need another paracentesis prior to then because his abdomen is becoming more distended again. Patient denies any fever, chills, abdominal pain, nausea, vomiting, diarrhea, constipation, dysuria, hematuria, melena. TRAVEL OUTSIDE OF THE [place] IN LAST 30 DAYS: No - HPI Onset: This morning Onset/Duration: Gradual Quality of pain: No pain Associated symptoms: None Exacerbated by: Denies Relieved by: Denies Similar symptoms previously: Yes Recently seen / treated by doctor: Yes - Related Data Allergies/Adverse Reactions: No Known Drug Allergies Allergy (Verified 08/08/18 11:37) Past Medical History - General Information source: Patient - Social History Smoking Status: Unknown if Ever Smoked Family History: Reviewed & Not Pertinent Patient has suicidal ideation: No Patient has homicidal ideation: No - Past Medical History Cardiac Medical History: Reports: Hx Coronary Artery Disease - CARDIAC STENT 2008, Hx Hypercholesterolemia, Hx Hypertension Denies: Hx Atrial Fibrillation, Hx Congestive Heart Failure, Hx Heart Attack, Hx Peripheral Vascular Disease, Hx Heart Murmur Pulmonary Medical History: Denies: Hx Asthma, Hx Bronchitis, Hx COPD, Hx Pneumonia, Hx Tuberculosis Neurological Medical History: Denies: Hx Cerebrovascular Accident, Hx Seizures Renal/ Medical History: Denies: Hx Benign Prostatic Hyperplasia, Hx End Stage Renal Disease, Hx Kidney Stones, Hx Peritoneal Dialysis Malignancy Medical History: Denies Hx Leukemia GI Medical History: Reports: Hx Gastroesophageal Reflux Disease. Denies: Hx Crohn's Disease, Hx Irritable Bowel, Hx Liver Failure, Hx Pancreatitis, Hx Ulcer Musculoskeletal Medical History: Denies Hx Arthritis Infectious Medical History: Denies: Hx HIV Past Surgical History: Reports: Hx Cardiac Catheterization - stents 2008, Hx Cardiac Surgery - Stent. Denies: Hx Colostomy, Hx Pacemaker - Immunizations Hx Diphtheria, Pertussis, Tetanus Vaccination: - UNSURE Hx Pneumococcal Vaccination: 06/17/10 Review of Systems - Review of Systems Constitutional: No symptoms reported EENT: No symptoms reported Cardiovascular: No symptoms reported Respiratory: No symptoms reported Gastrointestinal: Abdomen distended Genitourinary: No symptoms reported Male Genitourinary: No symptoms reported Musculoskeletal: No symptoms reported Skin: No symptoms reported Hematologic/Lymphatic: No symptoms reported Neurological/Psychological: No symptoms reported -: Yes All other systems reviewed and negative Physical Exam - Vital signs Vitals: Temp Pulse Resp BP Pulse Ox 98.1 F 68 16 113/67 97 08/08/18 11:42 08/08/18 11:42 08/08/18 11:42 08/08/18 11:42 08/08/18 11:42 - Notes Notes: PHYSICAL EXAMINATION: GENERAL: Well-appearing, well-nourished and in no acute distress. HEAD: Atraumatic, normocephalic. EYES: Pupils equal round and reactive to light, extraocular movements intact, sclera anicteric, conjunctiva are normal. ENT: Nares patent, oropharynx clear without exudates. Moist mucous membranes. NECK: Normal range of motion, supple without lymphadenopathy LUNGS: Breath sounds clear to auscultation bilaterally and equal. No wheezes rales or rhonchi. HEART: Regular rate and rhythm without murmurs ABDOMEN: Distended, no tenderness to palpation. No rebound or guarding. No peritoneal signs. Musculoskeletal: Normal range of motion, no pitting or edema. No cyanosis. NEUROLOGICAL: Cranial nerves grossly intact. Normal speech, normal gait. Normal sensory, motor exams PSYCH: Normal mood, normal affect. SKIN: Warm, Dry, normal turgor, no rashes or lesions noted. Course - Re-evaluation Re-evalutation: 08/08/18 14:54 Patient says that his abdomen is becoming more distended. Denies any abdominal pain in the room. No tenderness to palpation. No peritoneal signs. Denies fever, chills, nausea, vomiting, diarrhea, constipation, dysuria. Labs and imaging obtained. Chest xray is unremarkable. Labs show slightly decreased sodium and potassium. I do not feel that the patient has SBP or needs emergent paracentesis at this time. I discussed results with the patient. He's currently feeling fine and has no complaints. I told him to contact Dr. Escalante's office if he feels like he needs fluid removed before 08/16/18, beings having abdominal pain, fever, chills, difficulty breathing. Patient feels comfortable with the plan of care. 08/08/18 14:56 - Vital Signs Vital signs: Temp Pulse Resp BP Pulse Ox 98.1 F 68 18 113/67 100 08/08/18 11:42 08/08/18 11:42 08/08/18 13:52 08/08/18 11:42 08/08/18 13:52 - Laboratory Result Diagrams: 08/08/18 12:42 08/08/18 12:42 Laboratory results interpreted by me: 08/08/18 08/08/18 08/08/18 12:42 12:42 12:42 WBC 2.9 L RBC 3.59 L Hgb 10.9 L Hct 31.8 L RDW 14.2 H Plt Count 79 L Lymphocytes % 9.5 L Monocytes % 17.5 H Absolute Lymphocytes 0.3 L Sodium 132.8 L Potassium 3.4 L Calcium 8.1 L Direct Bilirubin 0.6 H AST 97 H Alkaline Phosphatase 172 H Albumin 2.6 L Lipase 378.6 H Urine Blood SMALL H Discharge - Discharge Clinical Impression: Abdominal distention Cirrhosis Qualifiers: Hepatic cirrhosis type: alcoholic cirrhosis Ascites presence: with ascites Qualified Code(s): K70.31 - Alcoholic cirrhosis of liver with ascites Condition: Good Disposition: HOME, SELF-CARE Instructions: Cirrhosis ([facility]) Referrals: MELISSA MERRITT PA-C [Primary Care Provider] - Follow up as needed
[2018-08-08] MEDS ORDERED: NORMAL SALINE 500 ML IV ONE (14:55)
[2018-08-08 16:17] VITALS: BP 120/80
== END 2018-08-08 16:15 | disposition home or self-care (01) ==
LOC: ER 11:31
DX: R14.0 Abdominal distension (gaseous) (principal); K70.31 Alcoholic cirrhosis of liver with ascites; I25.10 Atherosclerotic heart disease of native coronary artery without angina pectoris; E78.00 Pure hypercholesterolemia, unspecified; I10 Essential (primary) hypertension
CPT/HCPCS: 36415; 71046; 80053; 81001; 83690; 85025; 93005; 93010; 99284

== ENCOUNTER 2018-08-26 10:39 | Day surgery (SDC) | payer OTHER ==
[2018-08-26 13:33] LABS: INTERNATIONAL RATION (INR) 1.46; PROTHROMBIN TIME 18.5 SEC (11.4-15.4)
[2018-08-26 13:34] LABS: PARTIAL THROMBOPLASTIN TIME 36.7 SEC (23.5-35.8)
[2018-08-26 13:45] LABS: BLOOD UREA NITROGEN 12 mg/dL (7-20); POTASSIUM 3.7 mmol/L (3.6-5.0)
[2018-08-26 13:48] LABS: HEMATOCRIT 29.7 % (37.9-51.0); HEMOGLOBIN 10.4 g/dL (13.5-17.0); MEAN CORPUSCULAR HEMOGLOBIN 30.7 pg (27.0-33.4); MEAN CORPUSCULAR HGB CONC 34.9 g/dL (32.0-36.0); MEAN CORPUSCULAR VOLUME 88 fl (80-97); RED BLOOD COUNT 3.39 10^6/uL (4.35-5.55); RED CELL DISTRIBUTION WIDTH 13.9 % (11.5-14.0); WHITE BLOOD COUNT 3.1 10^3/uL (4.0-10.5)
[2018-08-26 13:53] LABS: PLATELET COUNT 75 10^3/uL (150-450)
--- NOTE | 2018-08-26 16:08 | RADIOLOGY REPORT (SQ) ---
EXAM DESCRIPTION: U/S ABD PARACENTESIS COMPLETED DATE/TIME: 08/26/2018 3:59 pm REASON FOR STUDY: ASCITES COMPARISON 07/01/2018, 04/22/2018 LIMITATIONS: None. PROCEDURE: After obtaining informed consent, the patient was brought to the ultrasound suite. The p rocedure was performed with the patient on a gurney. Ultrasound was used to identify a prominent poc ket of ascites in the right lower quadrant. An appropriate access site was selected. The patient wa s prepped and draped in usual sterile fashion. The access site was anesthetized with 7 mL 1% lidoca ine. A Mgdt-B-Wcpzgqfm needle was advanced into the fluid. After aspiration of fluid the needle, th e catheter was advanced off the needle into the fluid. A total of 8,000 mL of clear straw-colored fl uid was removed. The patient tolerated the procedure well left the department in satisfactory conditi on. IMPRESSION: Successful ultrasound-guided therapeutic only paracentesis COMMENT: Patient medication list reviewed: Yes- Quality ID# [id number]:Eligible professional attests to doc umenting in the medical record they obtained, updated, or reviewed the patient's current medications. TECHNICAL DOCUMENTATION: JOB ID: [id number] [employer]- All Rights Reserved Reading location - IP/workstation name: [email or web address]
[2018-08-26 16:49] VITALS: BP 119/57
== END 2018-08-26 16:45 | disposition home or self-care (01) ==
LOC: RAD 10:39
PROVIDERS: ATTEND Internal Medicine Gastroenterology
DX: K70.31 Alcoholic cirrhosis of liver with ascites (principal); I10 Essential (primary) hypertension; I25.10 Atherosclerotic heart disease of native coronary artery without angina pectoris; E78.00 Pure hypercholesterolemia, unspecified; I25.2 Old myocardial infarction; Z79.899 Other long term (current) drug therapy
CPT/HCPCS: 36415; 84520; 82565; 84132; 85027; 85610; 85730; 49083; P9047

== ENCOUNTER 2019-01-28 11:18 | Day surgery (SDC) | payer OTHER ==
[2019-01-28] MEDS ORDERED: ALBUMIN HUMAN 50 GM/200 ML RTUINJ IV PRN (12:30)
[2019-01-28 12:36] LABS: HEMATOCRIT 36.2 % (37.9-51.0); HEMOGLOBIN 12.2 g/dL (13.5-17.0); INTERNATIONAL RATION (INR) 1.44; MEAN CORPUSCULAR HEMOGLOBIN 30.7 pg (27.0-33.4); MEAN CORPUSCULAR HGB CONC 33.9 g/dL (32.0-36.0); MEAN CORPUSCULAR VOLUME 91 fl (80-97); PROTHROMBIN TIME 17.7 SEC (11.4-15.4); RED BLOOD COUNT 3.99 10^6/uL (4.35-5.55); WHITE BLOOD COUNT 3.3 10^3/uL (4.0-10.5)
[2019-01-28 12:37] LABS: PARTIAL THROMBOPLASTIN TIME 37.3 SEC (23.5-35.8)
[2019-01-28 12:47] LABS: BLOOD UREA NITROGEN 17 mg/dL (7-20)
[2019-01-28 12:50] LABS: PLATELET COUNT 66 10^3/uL (150-450)
--- NOTE | 2019-01-28 16:03 | RADIOLOGY REPORT (SQ) ---
EXAM DESCRIPTION: U/S ABD PARACENTESIS COMPLETED DATE/TIME: 01/28/2019 3:49 pm REASON FOR STUDY: ASCITES COMPARISON: 08/26/2018 LIMITATIONS: None. PROCEDURE: Procedure, risks, benefit, and alternative explained to patient who then gave written con sent. The left lower abdominal wall marked using ultrasound guidance. A time-out was called for cor rect marking verification. Abdomen prepped and draped using sterile technique. Local anesthesia achi eved using 10 ml of 1% lidocaine injection. A 6fr Icae-H-Rbzsmgew set was introduced into the perito chadwick cavity. Fluid was drained. The catheter was removed and entry site was covered with sterile ba ndage. No immediate complications noted. Images acquired during the procedure were stored on PACS. FINDINGS: ENTRY SITE: Left lower quadrant FLUID VOLUME: 8 L FLUID ANALYSIS: Straw-colored OTHER: Fluid sent to the lab for testing. IMPRESSION: SUCCESSFUL ULTRASOUND GUIDED PARACENTESIS. COMMENT: Patient medication list reviewed:Yes- Quality ID# [id number]:Eligible professional attests to docu menting in the medical record they obtained, updated, or reviewed the patient's current medications. TECHNICAL DOCUMENTATION: JOB ID: [id number] [employer]- All Rights Reserved Reading location - IP/workstation name: [email or web address]
[2019-01-28 16:35] VITALS: BP 115/65
[2019-01-28 16:47] LABS: FLUID SOURCE ASCITES; FLUID TYPE PERITONEAL
[2019-01-28 16:49] LABS: FLUID APPEARANCE CLEAR; FLUID COLOR YELLOW; FLUID VISCOSITY LIQUID
== END 2019-01-28 16:30 | disposition home or self-care (01) ==
LOC: RAD 11:18
PROVIDERS: ATTEND Internal Medicine Gastroenterology
DX: R18.8 Other ascites (principal)
CPT/HCPCS: 36415; 87205; 87070; 84520; 82565; 85027; 85610; 85730; 89050; 87075; 49083; P9047

== ENCOUNTER 2019-04-18 07:36 | Emergency (ER) | payer OTHER ==
--- NOTE | 2019-04-18 09:17 | ER Document Report ---
ED General - General Chief Complaint: Abdominal Pain Stated Complaint: ABDOMINAL PAIN Time Seen by Provider: 04/18/19 09:09 Primary Care Provider: VADIM KELLY MD [Primary Care Provider] - Follow up as needed TRAVEL OUTSIDE OF THE [place] IN LAST 30 DAYS: No - HPI Notes: Patient is a 64-year-old male with a history of alcoholic cirrhosis and ascites who presents complaining of abdominal distention, continued buildup of fluid, feeling like she cannot take a deep breath because of the distention that has been building up since his last paracentesis 3 months ago. Patient states that he usually has a performed every 3 and half months give or take. He is able to eat and drink without difficulty. He is urinating normally and having normal bowel movements. No recent illness. Denies any headache, fever, neck pain, URI, sore throat, chest pain, palpitations, syncope, cough, wheeze, nausea/vomiting/diarrhea, urinary retention, dysuria, hematuria, or rash. - Related Data Allergies/Adverse Reactions: No Known Drug Allergies Allergy (Verified 04/18/19 07:42) Past Medical History - Social History Smoking Status: Never Smoker Chew tobacco use (# tins/day): No Frequency of alcohol use: None Drug Abuse: None Family History: Reviewed & Not Pertinent Patient has suicidal ideation: No Patient has homicidal ideation: No - Past Medical History Cardiac Medical History: Reports: Hx Coronary Artery Disease - CARDIAC STENT 2008, Hx Hypercholesterolemia, Hx Hypertension Denies: Hx Atrial Fibrillation, Hx Congestive Heart Failure, Hx Heart Attack, Hx Peripheral Vascular Disease, Hx Heart Murmur Pulmonary Medical History: Denies: Hx Asthma, Hx Bronchitis, Hx COPD, Hx Pneumonia, Hx Tuberculosis Neurological Medical History: Denies: Hx Cerebrovascular Accident, Hx Seizures Renal/ Medical History: Denies: Hx Benign Prostatic Hyperplasia, Hx End Stage Renal Disease, Hx Kidney Stones, Hx Peritoneal Dialysis Malignancy Medical History: Denies Hx Leukemia GI Medical History: Reports: Hx Gastroesophageal Reflux Disease. Denies: Hx Crohn's Disease, Hx Irritable Bowel, Hx Liver Failure, Hx Pancreatitis, Hx Ulcer Musculoskeletal Medical History: Denies Hx Arthritis Infectious Medical History: Denies: Hx HIV Past Surgical History: Reports: Hx Cardiac Catheterization - stents 2008, Hx Cardiac Surgery - Stent. Denies: Hx Colostomy, Hx Pacemaker - Immunizations Hx Diphtheria, Pertussis, Tetanus Vaccination: - UNSURE Hx Pneumococcal Vaccination: 06/17/10 Review of Systems - Review of Systems -: Yes All other systems reviewed and negative Physical Exam - Vital signs Vitals: Temp Pulse Resp BP Pulse Ox 97.3 F 60 18 155/78 H 100 04/18/19 07:40 04/18/19 07:40 04/18/19 07:40 04/18/19 07:40 04/18/19 07:40 - Notes Notes: PHYSICAL EXAMINATION: GENERAL: Well-appearing, well-nourished and in no acute distress. HEAD: Atraumatic, normocephalic. EYES: Pupils equal round and reactive to light, extraocular movements intact, sclera anicteric, conjunctiva are normal. ENT: Nares patent and without discharge. oropharynx clear without exudates. No tonsilar hypertrophy or erythema. Moist mucous membranes. No sinus tenderness. NECK: Normal range of motion, supple without lymphadenopathy LUNGS: Breath sounds clear to auscultation bilaterally and equal. No wheezes rales or rhonchi. HEART: Regular rate and rhythm without murmurs, rubs, gallops. ABDOMEN: Soft, nontender, distended abdomen. Fluid noted. No guarding, no rebound. Normal bowel sounds present. No CVA tenderness bilaterally. Musculoskeletal: FROM to passive/active. Strength 5+/5. Extremities: No cyanosis, clubbing, or edema b/l. Peripheral pulses 2+. Capillary refill less than 3 seconds. NEUROLOGICAL: Cranial nerves grossly intact. Normal speech, normal gait. PSYCH: Normal mood, normal affect. SKIN: Warm, Dry, normal turgor, no rashes or lesions noted. Course - Re-evaluation Re-evalutation: 04/18/19 10:[address] Beasley who agrees that patient does not need an emergent paracentesis right now and can he can work with his PCM to set up outpatient procedure. Patient is an afebrile, well-hydrated, 64-year-old male who presents with abdominal distention and ascites, chronic. Vitals are acceptable without significant tachycardia, tachypnea, or hypoxia. PE is otherwise unremarkable. Patient's lungs are clear to auscultation bilaterally. Patient is nontoxic- appearing and is tolerating p.o. without difficulty. Patient's abdomen is soft and nontender throughout. Labs are unremarkable including INR. Chest x-ray un remarkable. No further work-up warranted. Low suspicion/risk for acute appendicitis, bowel obstruction, acute cholecystitis, perforated diverticulitis, incarcerated hernia, pancreatitis, perforated ulcer, peritonitis, sepsis, testicular torsion, or other systemic emergent condition at this time. Patient is aware that his condition can change from initial presentation and he needs to monitor symptoms closely and seek medical attention if any acute changes. Conservative measures otherwise for symptoms. Recheck with PCM in 2-3 days. Consider consult with your paracentesis provider who has been performing previous procedures. Return to the ED with any worsening/concerning symptoms otherwise as reviewed in discharge. Patient is in agreement. - Vital Signs Vital signs: Temp Pulse Resp BP Pulse Ox 97.3 F 60 18 155/78 H 100 04/18/19 07:40 04/18/19 07:40 04/18/19 07:40 04/18/19 07:40 04/18/19 07:40 - Laboratory Result Diagrams: 04/18/19 09:20 04/18/19 09:20 Laboratory results interpreted by me: 04/18/19 04/18/19 04/18/19 09:20 09:20 09:20 WBC 3.0 L RBC 4.25 L Hgb 13.4 L Plt Count 84 L Lymph % (Auto) 11.1 L Absolute Lymphs (auto) 0.3 L PT 17.1 H Sodium 136.9 L Total Bilirubin 1.5 H Direct Bilirubin 0.5 H AST 74 H Alkaline Phosphatase 192 H Total Protein 8.7 H Albumin 2.9 L Discharge - Discharge Clinical Impression: Ascites Qualifiers: Ascites type: due to alcoholic cirrhosis Qualified Code(s): K70.31 - Alcoholic cirrhosis of liver with ascites Condition: Stable Disposition: HOME, SELF-CARE Additional Instructions: maintain adequate fluid and food intake [place] diet ([employer] Bananas, rice, apples, toast, etc Ibuprofen if needed Monitor for any worsening symptoms Make sure you are staying hydrated enough to urinate and have normal BM's Recheck with your PCM in 2-3 days Get scheduled for outpatient paracentesis Consider consult with Gastroenterology for ongoing/worsening symptoms Return to the ED with any worsening symptoms and/or development of fever, hea dache, chest pain, palpitations, syncope, shortness of breath, trouble breathing, abdominal pain, n/v/d, blood in stool/urine, weakness, or other worsening symptoms that are concerning to you. Forms: Elevated Blood Pressure Referrals: LEE RODRIGUEZ MD [NO LOCAL MD] - Follow up in 3-5 days VADIM KELLY MD [Primary Care Provider] - Follow up as needed
[2019-04-18 09:44] LABS: ABSOLUTE EOSINOPHILS # (AUTO) 0.1 10^3/uL (0.0-0.6); ABSOLUTE LYMPHOCYTES (AUTO) 0.3 10^3/uL (0.5-4.7); ABSOLUTE MONOCYTES (AUTO) 0.3 10^3/uL (0.1-1.4); ABSOLUTE NEUT (AUTO) 2.3 10^3/uL (1.7-8.2); BASOPHILS % (AUTO) 0.3 % (0-2); EOSINOPHILS % (AUTO) 1.8 % (0-6); HEMATOCRIT 39.2 % (37.9-51.0); HEMOGLOBIN 13.4 g/dL (13.5-17.0); LYMPHOCYTES % (AUTO) 11.1 % (13-45); MEAN CORPUSCULAR HEMOGLOBIN 31.4 pg (27.0-33.4); MEAN CORPUSCULAR HGB CONC 34.1 g/dL (32.0-36.0); MEAN CORPUSCULAR VOLUME 92 fl (80-97); MONOCYTES % (AUTO) 10.4 % (3-13); RED BLOOD COUNT 4.25 10^6/uL (4.35-5.55); RED CELL DISTRIBUTION WIDTH 13.5 % (11.5-14.0); SEGMENTED NEUTROPHILS % (AUTO) 76.4 % (42-78); TOTAL CELLS COUNTED % (AUTO) 100 %
--- NOTE | 2019-04-18 09:48 | RADIOLOGY REPORT (SQ) ---
EXAM DESCRIPTION: CHEST SINGLE VIEW COMPLETED DATE/TIME: 04/18/2019 9:38 am REASON FOR STUDY: ascites hx, sob COMPARISON: 08/08/2018. FINDINGS: Single-view chest AP portable upright. Clear lungs with normal cardiomediastinal silhouette and intact bones. Negative study. TECHNICAL DOCUMENTATION: JOB ID: [id number] Reading location - IP/workstation name: [email or web address]
[2019-04-18 09:49] LABS: INTERNATIONAL RATION (INR) 1.38; PROTHROMBIN TIME 17.1 SEC (11.4-15.4)
[2019-04-18 10:04] LABS: ALBUMIN 2.9 g/dL (3.5-5.0); ALKALINE PHOSPHATASE 192 U/L (38-126); ANION GAP 8 (5-19); ASPARTATE AMINO TRANSFERASE 74 U/L (17-59); BILIRUBIN,DIRECT 0.5 mg/dL (0.0-0.4); BILIRUBIN,TOTAL 1.5 mg/dL (0.2-1.3); BLOOD UREA NITROGEN 15 mg/dL (7-20); CALCIUM 8.5 mg/dL (8.4-10.2); CARBON DIOXIDE 23 mmol/L (22-30); CHLORIDE 106 mmol/L (98-107); GLUCOSE 97 mg/dL (75-110); POTASSIUM 4.2 mmol/L (3.6-5.0); TOTAL PROTEIN 8.7 g/dL (6.3-8.2)
[2019-04-18 10:24] LABS: PLATELET COUNT 84 10^3/uL (150-450)
[2019-04-18 11:01] LABS: APPEARANCE,URINE CLEAR; BILIRUBIN,URINE NEGATIVE (NEGATIVE); COLOR,URINE YELLOW; GLUCOSE, URINE NEGATIVE (NEGATIVE); KETONES,URINE NEGATIVE (NEGATIVE); LEUKOCYTE ESTERASE,URINE NEGATIVE (NEGATIVE); NITRITE,URINE NEGATIVE (NEGATIVE); PROTEIN,URINE NEGATIVE (NEGATIVE); URINE SPECIFIC GRAVITY 1.012; UROBILINOGEN,URINE NEGATIVE mg/dL (<2.0)
[2019-04-18] MEDS ORDERED: HYDROCODONE/ACETAMINOPHEN 5-325 MG (6 TAB/ER DISP) PO PRN (11:11)
[2019-04-18 11:20] VITALS: BP 147/84
== END 2019-04-18 11:18 | disposition home or self-care (01) ==
LOC: ER 07:36
DX: K70.31 Alcoholic cirrhosis of liver with ascites (principal); I25.10 Atherosclerotic heart disease of native coronary artery without angina pectoris; E78.00 Pure hypercholesterolemia, unspecified; I10 Essential (primary) hypertension
CPT/HCPCS: 36415; 71045; 80053; 81001; 83690; 85025; 85610; 99284

== ENCOUNTER 2019-08-11 11:20 | Day surgery (SDC) | payer OTHER ==
[~2019-08-11 11:20] MED LIST changes: +ALBUMIN HUMAN 50 GM/200 ML RTUINJ IV PRN; -ALBUMIN HUMAN 62.5 GM/250 ML RTUINJ IV PRN
[2019-08-11 12:40] LABS: HEMATOCRIT 33.7 % (37.9-51.0); HEMOGLOBIN 11.7 g/dL (13.5-17.0); MEAN CORPUSCULAR HEMOGLOBIN 32.1 pg (27.0-33.4); MEAN CORPUSCULAR HGB CONC 34.8 g/dL (32.0-36.0); MEAN CORPUSCULAR VOLUME 92 fl (80-97); RED BLOOD COUNT 3.65 10^6/uL (4.35-5.55); RED CELL DISTRIBUTION WIDTH 13.3 % (11.5-14.0); WHITE BLOOD COUNT 2.9 10^3/uL (4.0-10.5)
[2019-08-11 12:41] LABS: PARTIAL THROMBOPLASTIN TIME 38.6 SEC (23.5-35.8); PROTHROMBIN TIME 17.3 SEC (11.4-15.4)
[2019-08-11 12:54] LABS: PLATELET COUNT 95 10^3/uL (150-450)
[2019-08-11 13:01] LABS: BLOOD UREA NITROGEN 17 mg/dL (7-20)
[2019-08-11] MEDS ORDERED: ALBUMIN HUMAN 50 GM/200 ML RTUINJ IV PRN (15:00)
--- NOTE | 2019-08-11 16:09 | RADIOLOGY REPORT (SQ) ---
EXAM DESCRIPTION: U/S ABD PARACENTESIS COMPLETED DATE/TIME: 08/11/2019 3:11 pm REASON FOR STUDY: ALCOHOLIC CIRRHOSIS OF LIVER WITH ASCITES COMPARISON None. LIMITATIONS: None. PROCEDURE: After obtaining informed consent, the patient was brought to the ultrasound suite. The p rocedure was performed with the patient on a gurney. Ultrasound was used to identify a prominent poc ket of ascites in the left lower quadrant. An appropriate access site was selected. The patient was prepped and draped in usual sterile fashion. The access site was anesthetized with 10 mL 1% lidoca ine. A [id number] needle was advanced into the fluid. After aspiration of fluid the needle, th e catheter was advanced off the needle into the fluid. A total of 5,500 mL of clear straw colored fl uid was removed. The patient tolerated the procedure well left the department in satisfactory conditi on. IMPRESSION: Successful ultrasound-guided paracentesis COMMENT: Patient medication list reviewed: Yes- Quality ID# [id number]:Eligible professional attests to doc umenting in the medical record they obtained, updated, or reviewed the patient's current medications. TECHNICAL DOCUMENTATION: JOB ID: [id number] 2010 [employer]- All Rights Reserved Reading location - IP/workstation name: [email or web address]
[2019-08-11 16:26] LABS: FLUID SOURCE ASCITES
[2019-08-11 16:28] LABS: FLUID TYPE PERITONEAL
[2019-08-11 16:29] LABS: FLUID APPEARANCE CLEAR; FLUID COLOR YELLOW
[2019-08-11 16:30] LABS: FLUID VISCOSITY LIQUID
[2019-08-11 16:46] VITALS: BP 114/68
== END 2019-08-11 16:30 | disposition home or self-care (01) ==
LOC: RAD 11:20
PROVIDERS: ATTEND Nurse Practitioner Family
DX: K70.31 Alcoholic cirrhosis of liver with ascites (principal); I25.10 Atherosclerotic heart disease of native coronary artery without angina pectoris; K21.9 Gastro-esophageal reflux disease without esophagitis; I50.9 Heart failure, unspecified
CPT/HCPCS: 36415; 87205; 87070; 84520; 82565; 85027; 85610; 85730; 89050; 87075; 49083; P9047

== ENCOUNTER 2020-03-01 07:03 | Day surgery (SDC) | payer OTHER ==
[2020-03-01 08:02] VITALS: BP 119/68
[2020-03-01 08:48] LABS: HEMATOCRIT 38.3 % (37.9-51.0); HEMOGLOBIN 13.2 g/dL (13.5-17.0); MEAN CORPUSCULAR HEMOGLOBIN 32.3 pg (27.0-33.4); MEAN CORPUSCULAR HGB CONC 34.4 g/dL (32.0-36.0); MEAN CORPUSCULAR VOLUME 94 fl (80-97); RED BLOOD COUNT 4.07 10^6/uL (4.35-5.55); RED CELL DISTRIBUTION WIDTH 13.2 % (11.5-14.0); WHITE BLOOD COUNT 2.8 10^3/uL (4.0-10.5)
[2020-03-01 08:57] LABS: BLOOD UREA NITROGEN 38 mg/dL (7-20); INTERNATIONAL RATION (INR) 1.39; PROTHROMBIN TIME 17.2 SEC (11.4-15.4)
[2020-03-01 08:58] LABS: PARTIAL THROMBOPLASTIN TIME 39.4 SEC (23.5-35.8)
[2020-03-01 09:14] LABS: PLATELET COUNT 43 10^3/uL (150-450)
--- NOTE | 2020-03-01 12:39 | RADIOLOGY REPORT (SQ) ---
EXAM DESCRIPTION: U/S ABDOMEN LIMITED W/O DOP IMAGES COMPLETED DATE/TIME: 03/01/2020 9:52 am REASON FOR STUDY: ALCOHOLIC CIRRHOSIS OF LIVER WITH ASCITES K70.31 ALCOHOLIC CIRRHOSIS OF LIVER WIT H ASCITES COMPARISON: None. TECHNIQUE: Dynamic and static grayscale images acquired of the abdomen and recorded on PACS. Heribertoo guzman selected color Doppler and spectral images recorded. LIMITATIONS: None. FINDINGS: Sonographic imaging was done in anticipation of a paracentesis. Insufficient ascites was seen. A small amount was present in the right upper quadrant. IMPRESSION: Insufficient fluid for drainage. TECHNICAL DOCUMENTATION: JOB ID: [id number] 2010 [employer] All Rights Reserved Reading location - IP/workstation name: [email or web address]
== END 2020-03-01 09:40 | disposition home or self-care (01) ==
LOC: RAD 07:03
PROVIDERS: ATTEND Internal Medicine Gastroenterology
DX: K70.31 Alcoholic cirrhosis of liver with ascites (principal); Z53.8 Procedure and treatment not carried out for other reasons
CPT/HCPCS: 36415; 76705; 82565; 84520; 85027; 85610; 85730

== ENCOUNTER 2020-04-06 09:15 | Observation (INO) | payer OTHER ==
--- NOTE | 2020-04-06 10:38 | RADIOLOGY REPORT (SQ) ---
EXAM DESCRIPTION: CHEST 2 VIEWS IMAGES COMPLETED DATE/TIME: 04/06/2020 10:24 am REASON FOR STUDY: chest pain COMPARISON: AP view of the chest from 04/18/2019. EXAM PARAMETERS: NUMBER OF VIEWS: Two views. TECHNIQUE: PA and lateral views of the chest were obtained. RADIATION DOSE: NA LIMITATIONS: None. FINDINGS: LUNGS AND PLEURA: Biapical pleural and parenchymal thickening. There is no consolidation, sizeable pleural effusion or pneumothorax. MEDIASTINUM AND HILAR STRUCTURES: No mediastinal or hilar contour abnormality. HEART AND VASCULAR STRUCTURES: The cardiac silhouette and pulmonary vasculature are within normal galindo its. BONES: No acute findings. HARDWARE: Coronary stents. OTHER: The calcifications that project within the right upper quadrant could represent cholelithiasis . IMPRESSION: No acute cardiopulmonary process. TECHNICAL DOCUMENTATION: JOB ID: [id number] 2010 [employer]- All Rights Reserved Reading location - IP/workstation name: [email or web address]
[2020-04-06 10:39] LABS: ALKALINE PHOSPHATASE 156 U/L (38-126); ANION GAP 11 (5-19); ASPARTATE AMINO TRANSFERASE 147 U/L (17-59); BILIRUBIN,DIRECT 0.7 mg/dL (0.0-0.4); BILIRUBIN,TOTAL 2.3 mg/dL (0.2-1.3); BLOOD UREA NITROGEN 48 mg/dL (7-20); CALCIUM 10.1 mg/dL (8.4-10.2); CARBON DIOXIDE 17 mmol/L (22-30); CHLORIDE 95 mmol/L (98-107); CREATINE KINASE 59 U/L (55-170); GLUCOSE 87 mg/dL (75-110); HEMATOCRIT 45.5 % (37.9-51.0); HEMOGLOBIN 16.3 g/dL (13.5-17.0); MEAN CORPUSCULAR HEMOGLOBIN 32.6 pg (27.0-33.4); MEAN CORPUSCULAR HGB CONC 35.8 g/dL (32.0-36.0); MEAN CORPUSCULAR VOLUME 91 fl (80-97); RED CELL DISTRIBUTION WIDTH 12.5 % (11.5-14.0); TOTAL PROTEIN 10.4 g/dL (6.3-8.2)
[2020-04-06 10:40] LABS: PLATELET COUNT 63 10^3/uL (150-450)
[2020-04-06 10:42] LABS: POTASSIUM 6.6 mmol/L (3.6-5.0)
[2020-04-06 10:45] LABS: ABSOLUTE LYMPHOCYTES# (MANUAL) 0.3 10^3/uL (0.5-4.7); ABSOLUTE MONOCYTES # (MANUAL) 0.7 10^3/uL (0.1-1.4); BASOPHILS % (MANUAL) 0 % (0-2); EOSINOPHILS % (MANUAL) 1 % (0-6); LYMPHOCYTES % (MANUAL) 8 % (13-45); MONOCYTES % (MANUAL) 18 % (3-13); SEGMENTED NEUTROPHILS % (MAN) 73 % (42-78); TOTAL CELLS COUNTED 100
[2020-04-06 10:47] LABS: PLATELET COMMENT DECREASED; RBC MORPHOLOGY COMMENT NORMO-CYTIC/CHROMIC
[2020-04-06] MEDS ORDERED: CALCIUM GLUCONATE 1000 MG/10 ML INJ IV ONE (10:47)
[2020-04-06] MEDS ORDERED: INSULIN REG, HUMAN 100 UNIT/ML 3 ML VIAL (PYX) IV ONE (10:47)
[2020-04-06] MEDS ORDERED: DEXTROSE 50%-WATER 25 GM/50 ML DISP.SYRIN IV ONE (10:47)
[2020-04-06 10:50] LABS: CREATINE KINASE MB 1.4 ng/mL (<4.55); TROPONIN I 0.012 ng/mL
[2020-04-06] MEDS ORDERED: NORMAL SALINE 500 ML IV ONE (11:12)
[2020-04-06] MEDS ORDERED: NORMAL SALINE 1000 ML 1,000 ML IV ONE (11:12)
--- NOTE | 2020-04-06 11:13 | ER Document Report ---
ED General - General Chief Complaint: Chest Wall Pain Stated Complaint: CHEST PAIN,WEAKNESS Time Seen by Provider: 04/06/20 10:35 TRAVEL OUTSIDE OF THE [place] IN LAST 30 DAYS: No - HPI Notes: Patient is a 65-year-old male with a past medical history of alcoholic cirrhosis who presents with weakness and left-sided intermittent chest pain. Chest pain has been there for 3 to 4 days. He states it only hurts when he moves his arm. Patient does mention that he has been fatigued for the past several days. He states he feels lightheaded upon standing up. Patient has had a small amount of diarrhea. No nausea or vomiting. No abdominal pain. No fevers. No cough. Patient is a former alcohol drinker but has quit about 10 years ago. - Related Data Allergies/Adverse Reactions: No Known Drug Allergies Allergy (Verified 04/18/19 07:42) Past Medical History - General Information source: Patient - Social History Smoking Status: Former Smoker Frequency of alcohol use: None Family History: Reviewed & Not Pertinent - Past Medical History Cardiac Medical History: Reports: Hx Coronary Artery Disease - CARDIAC STENT 2008, Hx Hypercholesterolemia, Hx Hypertension Denies: Hx Atrial Fibrillation, Hx Congestive Heart Failure, Hx Heart Attack, Hx Peripheral Vascular Disease, Hx Heart Murmur Pulmonary Medical History: Denies: Hx Asthma, Hx Bronchitis, Hx COPD, Hx Pneumonia, Hx Tuberculosis Neurological Medical History: Denies: Hx Cerebrovascular Accident, Hx Seizures Renal/ Medical History: Denies: Hx Benign Prostatic Hyperplasia, Hx End Stage Renal Disease, Hx Kidney Stones, Hx Peritoneal Dialysis Malignancy Medical History: Denies Hx Leukemia GI Medical History: Reports: Hx Gastroesophageal Reflux Disease. Denies: Hx Crohn's Disease, Hx Irritable Bowel, Hx Liver Failure, Hx Pancreatitis, Hx Ulcer Musculoskeletal Medical History: Denies Hx Arthritis Infectious Medical History: Denies: Hx HIV Past Surgical History: Reports: Hx Cardiac Catheterization - stents 2008, Hx Cardiac Surgery - Stent. Denies: Hx Colostomy, Hx Pacemaker - Immunizations Hx Diphtheria, Pertussis, Tetanus Vaccination: Yes - UNSURE Hx Pneumococcal Vaccination: 06/17/10 Review of Systems - Review of Systems Notes: CONSTITUTIONAL: No fever, fatigue or weight loss. SKIN: No rash. HENT: No congestion, ear pain, or sore throat. EYES: No recent vision problems or eye pain. CARDIOVASCULAR: Positive for chest pain RESPIRATORY: No cough, shortness of breath, congestion, or wheezing. GASTROINTESTINAL: No abdominal pain, nausea, vomiting. Positive for diarrhea. GENITOURINARY: No dysuria. MUSCULOSKELETAL: No joint pain or swelling. LYMPHATIC: No swollen glands. NEUROLOGIC: No seizures. No headache, focal weakness or sensory changes. Positive for lightheadedness. HEMATOLOGIC: No unusual bruising or bleeding. PSYCHIATRIC: No depression or anxiety. Physical Exam - Vital signs Vitals: Temp Pulse Resp BP Pulse Ox 97.6 F 60 16 106/63 96 04/06/20 09:30 04/06/20 09:30 04/06/20 09:30 04/06/20 09:30 04/06/20 09:30 - General General appearance: Appears well Notes: VITAL SIGNS: Within normal limits. GENERAL: No acute distress, non-toxic appearance. Dry mucus membranes. HEAD: Normal with no signs of head trauma. EYES: EOMI, conjunctiva normal, no discharge. EARS: Hearing grossly intact. NOSE: Normal. NECK: Normal range of motion, no tenderness, supple, no lymphadenopathy, No adenopathy, no JVD. CHEST: Clear breath sounds bilaterally. No wheezes, rales, or rhonchi. CARDIAC: Regular rate and rhythm. S1 and S2, without murmurs, gallops, or rubs. VASCULAR: No Edema. ABDOMEN: Normal and soft with no tenderness GENITOURINARY: Normal, No tenderness MUSCULOSKELETAL: Good range of motion of all major joints. Extremities without clubbing, cyanosis or edema. NEUROLOGICAL: Alert and oriented x 3. No focal sensory or strength deficits. Speech normal. Follows commands appropriately. PSYCHIATRIC: Normal Affect, judgement and mood. SKIN: Normal appearance with no rashes or lesions. Course - Re-evaluation Re-evalutation: 04/06/20 11:29 Patient's labs are notable for an elevated potassium and low sodium. I did not see this in his previous records. Patient's EKG suspicious for peaked T waves. I did treat with calcium, insulin, glucose. I did discuss with nephrology who recommended I also give Kayexalate. They also recommended that I give him a 500 cc normal saline bolus and then follow with 200 cc an hour for a total of 1L and repeat his electrolytes in several hours. Suspect that patient's chest pain is muscular as it is only there when he moves his left arm. We will obtain troponins and reevaluate. Patient's chest pain is resolved. His repeat potassium is improved. Sodium however is still low. I did discuss with hospitalist for admission. Patient has had a small amount of stool after the kayexelate. Patient states he has been limiting salt in his diet from recommendation of his doctor which could be a cause of the hyponatremia. 04/06/20 17:10 04/06/20 17:11 - Vital Signs Vital signs: Temp Pulse Resp BP Pulse Ox 97.6 F 60 9 L 135/71 H 100 04/06/20 09:30 04/06/20 09:30 04/06/20 13:01 04/06/20 13:01 04/06/20 13:01 - Laboratory Result Diagrams: 04/06/20 09:50 04/06/20 12:50 Laboratory results interpreted by me: 04/06/20 04/06/20 04/06/20 09:50 09:50 12:50 Plt Count 63 L Lymphocytes % (Manual) 8 L Monocytes % (Manual) 18 H Abs Lymphs (Manual) 0.3 L Sodium 123.2 L 121.8 L Potassium 6.6 H* 5.6 H D Chloride 95 L 97 L Carbon Dioxide 17 L 15 L BUN 48 H 47 H Creatinine 1.96 H 1.76 H Est GFR ( Amer) 42 L 47 L Est GFR (MDRD) Non-Af 35 L 39 L Glucose 188 H Total Bilirubin 2.3 H Direct Bilirubin 0.7 H AST 147 H ALT 106 H Alkaline Phosphatase 156 H Total Protein 10.4 H Critical Care Note - Critical Care Note Total time excluding time spent on procedures (mins): 30 Comments: Upon my evaluation, this patient had a high probability of imminent or life- threatening deterioration due to hyperkalemia, which required my direct attention, intervention, and personal management. I have personally provided 30 minutes of critical care time exclusive of time spent on separately billable procedures. Time includes review of laboratory data, radiology results, discussion with consultants, and monitoring for potential decompensation. Revisions were performed as documented above. Discharge - Discharge Clinical Impression: Hyponatremia, Hyperkalemia, Weakness, Lightheaded Chest pain Qualifiers: Chest pain type: unspecified Qualified Code(s): R07.9 - Chest pain, unspecified Condition: Stable Disposition: ADMITTED INPATIENT Admitting Provider: Dilan (Hospitalist) Unit Admitted: Telemetry
[2020-04-06] MEDS ORDERED: SODIUM POLYSTYRENE SULFONATE 15 GM/60 ML PO ONE (11:45)
[2020-04-06] MEDS: SODIUM POLYSTYRENE SULFONATE 15 GM/60 ML NG ONE ×2 (11:57→12:03)
[2020-04-06] MEDS ORDERED: ASPIRIN 81 MG TABLET, CHEWABLE PO ONE (15:24)
[2020-04-06 15:33] LABS: ANION GAP 10 (5-19); BLOOD UREA NITROGEN 47 mg/dL (7-20); CALCIUM 9.5 mg/dL (8.4-10.2); CARBON DIOXIDE 15 mmol/L (22-30); CHLORIDE 97 mmol/L (98-107); GLUCOSE 188 mg/dL (75-110)
[2020-04-06 16:03] LABS: POTASSIUM 5.6 mmol/L (3.6-5.0)
--- NOTE | 2020-04-06 16:34 | EKG REPORT ---
SEVERITY:- ABNORMAL ECG - SINUS BRADYCARDIA NONSPECIFIC INTRAVENTRICULAR CONDUCTION DELAY : Confirmed by: Álvaro Tom MD 06-Apr-2020 16:33:55
[2020-04-06] MEDS ORDERED: ALBUTEROL SULFATE 0.083% NEB 2.5 MG/3 ML AMPUL NEB PRN (17:35)
[2020-04-06] MEDS ORDERED: MAGNESIUM HYDROXIDE SUSP 30 ML UDCUP PO PRN (18:12)
[2020-04-06] MEDS ORDERED: ONDANSETRON HCL INJ/PF 4 MG/2 ML SDV IV PRN (18:12)
[2020-04-06] MEDS ORDERED: MAG HYDROX/AL HYDROX/SIMETH SUSP 30 ML UDCUP PO PRN (18:12)
[2020-04-06 18:31] LABS: INTERNATIONAL RATION (INR) 1.42; PROTHROMBIN TIME 17.5 SEC (11.4-15.4)
[2020-04-06 18:45] LABS: ANION GAP 9 (5-19); BLOOD UREA NITROGEN 43 mg/dL (7-20); CALCIUM 8.9 mg/dL (8.4-10.2); CARBON DIOXIDE 19 mmol/L (22-30); CHLORIDE 98 mmol/L (98-107); GLUCOSE 128 mg/dL (75-110)
[2020-04-06] MEDS ORDERED: ENOXAPARIN SODIUM INJ 30 MG/0.3 ML DISP.SYRIN SUBCUT SCH (18:45)
[2020-04-06 18:53] LABS: POTASSIUM 4.2 mmol/L (3.6-5.0)
--- NOTE | 2020-04-06 20:25 | PDOC H&P ---
History of Present Illness Admission Date/PCP: 04/06/20 16:54 VADIM KELLY Patient complains of: chest pain, generalized weakness History of Present Illness: DONA SOLIS is a 65 year old male with a past medical history of CAD, hyperlipidemia, cirrhosis, and esophageal varices who presented to the emergency department today with a complaint of left-sided chest pain worsened by movement (including extending his left arm and rolling over in bed) does not radiate, without further exacerbating or alleviating factors, and no associated symptoms. At the time of my assessment, the patient's chest discomfort had completely abated. He does continue to have fatigue and generalized weakness. He is established with Dr. Alaniz for cardiology. Does not have a spray gunner. Evaluation in the emergency department was remarkable for Thrombocytopenia, hyponatremia (NA 123.2), hyperkalemia (K6.6), metabolic acidosis (bicarb 17) ANDRE (CR 1.96/BUN 48), and an elevated total bili/AST/ALT/alk phos. Troponins were negative x2. Vital signs are stable. Chest x-ray is unremarkable. EKG revealed sinus bradycardia with peaked T waves. He was provided IV fluids, calcium gluconate, dextrose, insulin with follow-up chemistry showing improvement in his potassium to 5.6. At that time he was referred to the hospitalist service for further evaluation and management of the above-stated complaints and findings. Past Medical History Cardiac Medical History: Reports: Coronary Artery Disease - CARDIAC STENT 2008, Hyperlipidema, Hypertension Denies: Atrial Fibrillation, Congestive Heart Failure, Myocardial Infarction Pulmonary Medical History: Reports: None Neurological Medical History: Reports: None Endocrine Medical History: Reports: None Renal/ Medical History: Denies: End Stage Renal Disease GI Medical History: Reports: Cirrhosis, Gastroesophageal Reflux Disease, Other - Esophageal varices; prior GI bleed Musculoskeltal Medical History: Denies: Arthritis Skin Medical History: Reports: None Psychiatric Medical History: Reports: Alcohol Dependency Hematology: Reports: Anemia Denies: Sickle Cell Disease Infectious Medical History: Denies: HIV Past Surgical History Past Surgical History: Reports: Cardiac Catheterization - stents 2008 Denies: Colostomy, Pacemaker Social History Information Source: Patient Lives with: Alone Smoking Status: Former Smoker Electronic Cigarette use?: No Frequency of Alcohol Use: None Hx Recreational Drug Use: No Hx Prescription Drug Abuse: No - Advance Directive Resuscitation Status: Full Code Family History Family History: Reviewed & Not Pertinent Parental Family History Reviewed: Yes Children Family History Reviewed: Yes Sibling(s) Family History Reviewed.: Yes Medication/Allergy Home Medications: Furosemide [Lasix 40 mg Tablet] 1.5 tab PO DAILY 03/22/17 Loratadine [Claritin 10 mg Tablet] 10 mg PO DAILY 03/22/17 Nadolol [Corgard 40 mg Tablet] 1.5 tab PO DAILY 03/22/17 Fluticasone Propionate [Flonase Nasal [place] 50 Mcg/[place] 16 gm] 1 spray NASL DAILY PRN 03/20/18 Multivitamin [Multivitamins] 1 tab PO DAILY 03/20/18 Potassium Chloride 10 meq PO BID 03/20/18 Amiloride HCl [Midamor 5 mg Tablet] 5 mg PO BID 03/21/18 Allergies/Adverse Reactions: No Known Drug Allergies Allergy (Verified 04/18/19 07:42) Review of Systems Constitutional: PRESENT: fatigue, weakness. ABSENT: chills, fever(s), headache(s), weight gain, weight loss Eyes: ABSENT: visual disturbances Ears: ABSENT: hearing changes Cardiovascular: PRESENT: chest pain - Atypical. ABSENT: dyspnea on exertion, edema, orthropnea, palpitations Respiratory: ABSENT: cough, hemoptysis Gastrointestinal: ABSENT: abdominal pain, constipation, diarrhea, hematemesis, hematochezia, nausea, vomiting Genitourinary: ABSENT: dysuria, hematuria Musculoskeletal: ABSENT: joint swelling Integumentary: ABSENT: rash, wounds Neurological: ABSENT: abnormal gait, abnormal speech, confusion, dizziness, focal weakness, syncope Psychiatric: ABSENT: anxiety, depression, homidical ideation, suicidal ideation Endocrine: ABSENT: cold intolerance, heat intolerance, polydipsia, polyuria Hematologic/Lymphatic: ABSENT: easy bleeding, easy bruising Physical Exam Vital Signs: Temp Pulse Resp BP Pulse Ox 97.4 F 57 L 12 119/53 L 100 04/06/20 19:30 04/06/20 19:30 04/06/20 19:30 04/06/20 19:30 04/06/20 19:30 Intake & Output 04/05/20 04/06/20 04/07/20 06:59 06:59 06:59 Intake Total 1500 Balance 1500 Weight 48.3 kg General appearance: PRESENT: no acute distress, cooperative, thin - Cachectic, well-developed Head exam: PRESENT: atraumatic, normocephalic Eye exam: PRESENT: conjunctiva pink, EOMI, PERRLA. ABSENT: scleral icterus Mouth exam: PRESENT: dry mucosa, tongue midline Teeth exam: PRESENT: poor dentation Neck exam: ABSENT: carotid bruit, JVD, lymphadenopathy, thyromegaly Respiratory exam: PRESENT: clear to auscultation mike, symmetrical, unlabored. ABSENT: rales, rhonchi, wheezes Cardiovascular exam: PRESENT: RRR. ABSENT: diastolic murmur, rubs, systolic murmur Pulses: PRESENT: normal dorsalis pedis pul Vascular exam: PRESENT: normal capillary refill GI/Abdominal exam: PRESENT: normal bowel sounds, soft. ABSENT: ascites, distended, guarding, mass, organolmegaly, rebound, tenderness Rectal exam: PRESENT: deferred Extremities exam: PRESENT: full ROM. ABSENT: calf tenderness, clubbing, pedal edema Neurological exam: PRESENT: alert, awake, oriented to person, oriented to place, oriented to time, oriented to situation, CN II-XII grossly intact. ABSENT: motor sensory deficit Psychiatric exam: PRESENT: appropriate affect, normal mood. ABSENT: homicidal ideation, suicidal ideation Skin exam: PRESENT: dry, intact, warm. ABSENT: cyanosis, rash Results Laboratory Results: 04/06/20 09:50 04/06/20 17:59 04/06/20 04/06/20 04/06/20 09:50 09:50 12:50 WBC 4.0 RBC 5.00 Hgb 16.3 Hct 45.5 MCV 91 MCH 32.6 MCHC 35.8 RDW 12.5 Plt Count 63 L Seg Neutrophils % Not Reportable Sodium 123.2 L 121.8 L Potassium 6.6 H* 5.6 H D Chloride 95 L 97 L Carbon Dioxide 17 L 15 L Anion Gap 11 10 BUN 48 H 47 H Creatinine 1.96 H 1.76 H Est GFR ( Amer) 42 L 47 L Glucose 87 188 H Calcium 10.1 9.5 Total Bilirubin 2.3 H AST 147 H Alkaline Phosphatase 156 H Ammonia Total Protein 10.4 H Albumin 4.0 04/06/20 04/06/20 17:59 17:59 WBC RBC Hgb Hct MCV MCH MCHC RDW Plt Count Seg Neutrophils % Sodium 125.8 L Potassium 4.2 D Chloride 98 Carbon Dioxide 19 L Anion Gap 9 BUN 43 H Creatinine 1.66 H Est GFR ( Amer) 51 L Glucose 128 H Calcium 8.9 Total Bilirubin AST Alkaline Phosphatase Ammonia 29.7 Total Protein Albumin 04/06/20 04/06/20 04/06/20 09:50 09:50 12:50 Creatine Kinase 59 CK-MB (CK-2) 1.40 Troponin I 0.012 0.015 Impressions: Chest X-Ray 04/06/20 00:00 IMPRESSION: No acute cardiopulmonary process. Assessment and Plan - Diagnosis (1) Chest pain Qualifiers: Chest pain type: unspecified Qualified Code(s): R07.9 - Chest pain, unspecified Is this a current diagnosis for this admission?: Yes Plan: Atypical chest discomfort; resolved shortly upon arrival to the emergency department. Reproducible with palpation of her extremity. Troponins are negative x2. EKG is reassuring. We will monitor on telemetry. Follow-up troponin. Daily aspirin and statin therapy. We will discuss with Dr. Del Real; patient is likely appropriate for outpatient cardiology follow-up. (2) ANDRE (acute kidney injury) Is this a current diagnosis for this admission?: Yes Plan: Prerenal secondary to dehydration related to diuretic use. Ireatinine 1.96/BUN 48-> 1.66/43 Normal baseline renal function. We will hold diuretics. Gentle IV fluids overnight. Avoid nephrotoxic medications. Strict I&O's. Follow-up chemistries. (3) Hyperkalemia Is this a current diagnosis for this admission?: Yes Plan: Likely secondary to acute kidney injury, dehydration, and potassium sparing diuretic. Hyperkalemia has resolved following correction in the emergency department with IV fluids, calcium gluconate, insulin and dextrose. Follow-up chemistry. (4) Hyponatremia Is this a current diagnosis for this admission?: Yes Plan: Likely secondary to dehydration as a result of diuretic therapy in combination with strict adherence to a low-sodium diet. We will hold furosemide and spironolactone. Liberalize dietary sodium. Gentle IV fluids overnight. Trend chemistries. We will reintroduce his diuretic therapy once sodium approaches normal. (5) Cirrhosis Qualifiers: Hepatic cirrhosis type: alcoholic cirrhosis Ascites presence: without ascites Qualified Code(s): K70.30 - Alcoholic cirrhosis of liver without ascites Is this a current diagnosis for this admission?: Yes Plan: Remote alcohol use. Patient reports that he was requiring paracentesis approximately every 4 months until he began adhering to a strict low-sodium diet. Last paracentesis in June. Now presents with dehydration and acute kidney injury. Meld score 28. Ammonia normal. Gentle IV fluids overnight. Currently holding furosemide and Amiloride secondary to dehydration/ANDRE and associated electrolyte derangements. We will continue home dose nadolol. Repeat chemistry in the morning. We will gradually reintroduce diuretic therapy once sodium has normalized. Will discuss with patient appropriate fluid and sodium intake. Registered dietitian is consulted. (6) Thrombocytopenia Is this a current diagnosis for this admission?: Yes Plan: Likely secondary to cirrhosis. Follow-up CBC. Fall precautions. - Time Time Spent with patient: 35 or more minutes Medications reviewed and adjusted accordingly: Yes Anticipated Discharge Disposition: Home, Self Care Anticipated Discharge Timeframe: within 48 hours
[2020-04-06 20:34] LABS: APPEARANCE,URINE CLEAR; BILIRUBIN,URINE NEGATIVE (NEGATIVE); COLOR,URINE YELLOW; GLUCOSE, URINE 150 mg/dL (NEGATIVE); KETONES,URINE NEGATIVE (NEGATIVE); LEUKOCYTE ESTERASE,URINE NEGATIVE (NEGATIVE); NITRITE,URINE NEGATIVE (NEGATIVE); PROTEIN,URINE NEGATIVE (NEGATIVE); URINE SPECIFIC GRAVITY 1.017; UROBILINOGEN,URINE NEGATIVE mg/dL (<2.0)
[2020-04-06] MEDS: FLUTICASONE NASAL SPRAY 50 MCG/SPRY 120 SPRAY/16 GM NASL SCH (22:03)
[2020-04-06] MEDS: ASPIRIN 81 MG TABLET, CHEWABLE PO SCH (22:03)
[2020-04-06] MEDS: ATORVASTATIN CALCIUM 40 MG TABLET PO SCH (22:04)
[2020-04-06] MEDS: FAMOTIDINE 20 MG TABLET PO SCH (22:04)
[2020-04-06 22:36] LABS: ANION GAP 9 (5-19); BLOOD UREA NITROGEN 42 mg/dL (7-20); CARBON DIOXIDE 21 mmol/L (22-30); CHLORIDE 96 mmol/L (98-107); GLUCOSE 88 mg/dL (75-110); POTASSIUM 3.8 mmol/L (3.6-5.0)
[2020-04-07] MEDS: NORMAL SALINE 1000 ML 1,000 ML IV PRN ×3 (00:26→23:06)
[2020-04-07 05:42] LABS: HEMATOCRIT 36.7 % (37.9-51.0); MEAN CORPUSCULAR HEMOGLOBIN 32.5 pg (27.0-33.4); MEAN CORPUSCULAR HGB CONC 34.9 g/dL (32.0-36.0); MEAN CORPUSCULAR VOLUME 93 fl (80-97); RED BLOOD COUNT 3.94 10^6/uL (4.35-5.55); RED CELL DISTRIBUTION WIDTH 12.7 % (11.5-14.0)
[2020-04-07 06:02] LABS: ALBUMIN 2.8 g/dL (3.5-5.0); ALKALINE PHOSPHATASE 107 U/L (38-126); ANION GAP 7 (5-19); ASPARTATE AMINO TRANSFERASE 102 U/L (17-59); BILIRUBIN,DIRECT 0.6 mg/dL (0.0-0.4); BILIRUBIN,TOTAL 1.5 mg/dL (0.2-1.3); BLOOD UREA NITROGEN 39 mg/dL (7-20); CALCIUM 8.7 mg/dL (8.4-10.2); CARBON DIOXIDE 18 mmol/L (22-30); CHLORIDE 101 mmol/L (98-107); CHOLESTEROL 218.02 mg/dL (0-200); POTASSIUM 4.2 mmol/L (3.6-5.0); TOTAL PROTEIN 7.5 g/dL (6.3-8.2); TRIGLYCERIDES 96 mg/dL (<150)
[2020-04-07 06:07] LABS: HEMOGLOBIN 12.8 g/dL (13.5-17.0); WHITE BLOOD COUNT 2.5 10^3/uL (4.0-10.5)
[2020-04-07 06:11] LABS: PLATELET COUNT 31 10^3/uL (150-450)
[2020-04-07 06:16] LABS: DIRECT LDL 139 mg/dL (<100)
[2020-04-07 06:19] LABS: GLUCOSE 62 mg/dL (75-110)
[2020-04-07] MEDS: NADOLOL 40 MG TABLET PO SCH (09:39)
[2020-04-07] MEDS: DOCUSATE SODIUM 100 MG CAPSULE PO SCH (09:40)
[2020-04-07] MEDS: FAMOTIDINE 20 MG TABLET PO SCH ×2 (09:40→21:10)
[2020-04-07] MEDS: FLUTICASONE NASAL SPRAY 50 MCG/SPRY 120 SPRAY/16 GM NASL SCH (09:41)
[2020-04-07] MEDS: LORATADINE 10 MG TABLET PO SCH (09:41)
[2020-04-07] MEDS: MULTIVITAMIN TABLET PO SCH (09:41)
[2020-04-07] MEDS ORDERED: (PENDING PHARMACY ID) (Multivitamin [Multivitamins] 1 TAB) PO SCH (10:00)
[2020-04-07 17:03] LABS: ANION GAP 5 (5-19); BLOOD UREA NITROGEN 29 mg/dL (7-20); CALCIUM 8.2 mg/dL (8.4-10.2); CARBON DIOXIDE 22 mmol/L (22-30); CHLORIDE 101 mmol/L (98-107); POTASSIUM 4.1 mmol/L (3.6-5.0)
[2020-04-07 17:13] LABS: GLUCOSE 69 mg/dL (75-110)
--- NOTE | 2020-04-07 18:04 | EKG REPORT ---
SEVERITY:- ABNORMAL ECG - SINUS RHYTHM SUPRAVENTRICULAR BIGEMINY INFERIOR INFARCT, AGE INDETERMINATE : Confirmed by: Álvaro Tom MD 07-Apr-2020 18:03:39
--- NOTE | 2020-04-07 19:08 | PDOC PROGRESS REPORT ---
Subjective Progress Note for:: 04/07/20 Subjective:: DONA SOLIS is a 65 year old male with a past medical history of CAD, hyperlipidemia, cirrhosis, and esophageal varices who was admitted 04/06/2020 with ANDRE and associated electrolyte derangements. Patient was seen on morning rounds. Is found resting in bed, comfortably, on room air. He reports that he is feeling well and hopeful to go home today. He denies fever, chills, chest pain, palpitations, dyspnea, abdominal pain, nausea vomiting and diarrhea. He has no questions or concerns at this time. No concerns per nursing. Reason For Visit: HYPONATREMIA,HYPOKALEMIA,WEAKNESS,CHEST PAIN Physical Exam Vital Signs: Temp Pulse Resp BP Pulse Ox 97.6 F 61 18 104/59 L 100 04/07/20 16:01 04/07/20 16:01 04/07/20 16:01 04/07/20 16:01 04/07/20 16:01 Intake & Output 04/06/20 04/07/20 04/08/20 06:59 06:59 06:59 Intake Total 1500 1890 Output Total 200 Balance 1500 1690 Weight 51.5 kg 51.5 kg General appearance: PRESENT: no acute distress, cooperative, thin - Cachectic, well-developed Head exam: PRESENT: atraumatic, normocephalic Eye exam: PRESENT: conjunctiva pink, EOMI, PERRLA. ABSENT: scleral icterus Mouth exam: PRESENT: moist, tongue midline Teeth exam: PRESENT: poor dentation Respiratory exam: PRESENT: clear to auscultation mike, symmetrical, unlabored. ABSENT: rales, rhonchi, wheezes Cardiovascular exam: PRESENT: RRR, +S1, +S2. ABSENT: diastolic murmur, rubs, systolic murmur Vascular exam: PRESENT: normal capillary refill Extremities exam: PRESENT: full ROM. ABSENT: calf tenderness, clubbing, pedal edema Musculoskeletal exam: PRESENT: ambulatory Neurological exam: PRESENT: alert, awake, oriented to person, oriented to place, oriented to time, oriented to situation, CN II-XII grossly intact. ABSENT: motor sensory deficit Psychiatric exam: PRESENT: appropriate affect, normal mood. ABSENT: homicidal ideation, suicidal ideation Skin exam: PRESENT: dry, intact, warm. ABSENT: cyanosis, rash Results Laboratory Results: 04/07/20 04:33 04/07/20 15:50 04/06/20 04/06/20 04/07/20 20:17 21:56 04:33 WBC 2.5 L D RBC 3.94 L Hgb 12.8 L D Hct 36.7 L MCV 93 MCH 32.5 MCHC 34.9 RDW 12.7 Plt Count 31 L Sodium 126.4 L Potassium 3.8 Chloride 96 L Carbon Dioxide 21 L Anion Gap 9 BUN 42 H Creatinine 1.86 H Est GFR ( Amer) 44 L Glucose 88 Calcium 9.0 Total Bilirubin AST Alkaline Phosphatase Total Protein Albumin Triglycerides Cholesterol LDL Cholesterol Direct VLDL Cholesterol HDL Cholesterol Urine Color YELLOW Urine Appearance CLEAR Urine pH 5.0 Ur Specific [place] 1.017 Urine Protein NEGATIVE Urine Glucose (UA) 150 H Urine Ketones NEGATIVE Urine Blood NEGATIVE Urine Nitrite NEGATIVE Ur Leukocyte Esterase NEGATIVE Urine WBC (Auto) 4 Urine RBC (Auto) 2 04/07/20 04/07/20 04:33 15:50 WBC RBC Hgb Hct MCV MCH MCHC RDW Plt Count Sodium 125.8 L 128.0 L Potassium 4.2 4.1 Chloride 101 101 Carbon Dioxide 18 L 22 Anion Gap 7 5 BUN 39 H 29 H Creatinine 1.55 H 1.35 H Est GFR ( Amer) 55 L > 60 Glucose 62 L 69 L Calcium 8.7 8.2 L Total Bilirubin 1.5 H AST 102 H Alkaline Phosphatase 107 Total Protein 7.5 Albumin 2.8 L Triglycerides 96 Cholesterol 218.02 H LDL Cholesterol Direct 139 H VLDL Cholesterol 19.0 HDL Cholesterol 22 L Urine Color Urine Appearance Urine pH Ur Specific [place] Urine Protein Urine Glucose (UA) Urine Ketones Urine Blood Urine Nitrite Ur Leukocyte Esterase Urine WBC (Auto) Urine RBC (Auto) 04/06/20 04/06/20 04/06/20 09:50 09:50 12:50 Creatine Kinase 59 CK-MB (CK-2) 1.40 Troponin I 0.012 0.015 04/06/20 17:59 Creatine Kinase CK-MB (CK-2) Troponin I 0.021 Impressions: Chest X-Ray 04/06/20 00:00 IMPRESSION: No acute cardiopulmonary process. Assessment and Plan - Diagnosis (1) Chest pain Qualifiers: Chest pain type: unspecified Qualified Code(s): R07.9 - Chest pain, unspecified Is this a current diagnosis for this admission?: Yes Plan: Resolved. No further episodes. Atypical chest discomfort; resolved shortly upon arrival to the emergency dep artment. Reproducible with palpation of her extremity. Troponins are negative x3. EKG is reassuring. We will monitor on telemetry. Daily aspirin and statin therapy. Discussed with Dr. Alaniz. He reviewed EKGs, no abnormal findings. Appropriate for outpatient follow-up. (2) ANDRE (acute kidney injury) Is this a current diagnosis for this admission?: Yes Plan: Improved Prerenal secondary to dehydration related to diuretic use. Creatinine 1.96/BUN 48-> 1.66/43-> 1.35/29 Normal baseline renal function. We will hold diuretics. Gentle IV fluids. Avoid nephrotoxic medications. Strict I&O's. Follow-up chemistries. (3) Hyperkalemia Is this a current diagnosis for this admission?: Yes Plan: Resolved. Likely secondary to acute kidney injury, dehydration, and potassium sparing diuretic. Hyperkalemia has resolved following correction in the emergency department with IV fluids, calcium gluconate, insulin and dextrose. Follow-up chemistry. (4) Hyponatremia Is this a current diagnosis for this admission?: Yes Plan: Improved; Na 123-> 121-> 128 Likely secondary to dehydration as a result of diuretic therapy in combination with strict adherence to a low-sodium diet. We will hold furosemide and spironolactone. Liberalize dietary sodium. Gentle IV fluids overnight. Trend chemistries. We will reintroduce his diuretic therapy once sodium approaches normal. (5) Cirrhosis Qualifiers: Hepatic cirrhosis type: alcoholic cirrhosis Ascites presence: without ascites Qualified Code(s): K70.30 - Alcoholic cirrhosis of liver without ascites Is this a current diagnosis for this admission?: Yes Plan: Remote alcohol use. Patient reports that he was requiring paracentesis approximately every 4 months until he began adhering to a strict low-sodium diet. Last paracentesis in June. Now presents with dehydration and acute kidney injury. Meld score 28. Ammonia normal. Gentle IV fluids overnight. Currently holding furosemide and Amiloride secondary to dehydration/ANDRE and associated electrolyte derangements. We will continue home dose nadolol. Repeat chemistry in the morning. We will reintroduce diuretic therapy once sodium has normalized. Discussed with patient appropriate fluid and sodium intake. Registered dietitian is consulted. (6) Thrombocytopenia Is this a current diagnosis for this admission?: Yes Plan: Likely secondary to cirrhosis. Follow-up CBC. Fall precautions. Will discuss w/ Hematology. - Time Time Spent with patient: 35 or more minutes Medications reviewed and adjusted accordingly: Yes Anticipated Discharge Disposition: Home, Self Care Anticipated Discharge Timeframe: within 24 hours
[2020-04-07] MEDS: ATORVASTATIN CALCIUM 40 MG TABLET PO SCH (21:10)
[2020-04-07] MEDS: ASPIRIN 81 MG TABLET, CHEWABLE PO SCH (21:10)
[2020-04-08 06:24] LABS: HEMATOCRIT 36.3 % (37.9-51.0); HEMOGLOBIN 12.9 g/dL (13.5-17.0); MEAN CORPUSCULAR HEMOGLOBIN 32.8 pg (27.0-33.4); MEAN CORPUSCULAR HGB CONC 35.6 g/dL (32.0-36.0); MEAN CORPUSCULAR VOLUME 92 fl (80-97); RED BLOOD COUNT 3.95 10^6/uL (4.35-5.55); RED CELL DISTRIBUTION WIDTH 12.6 % (11.5-14.0); WHITE BLOOD COUNT 2.3 10^3/uL (4.0-10.5)
[2020-04-08 06:39] LABS: ANION GAP 6 (5-19); BLOOD UREA NITROGEN 19 mg/dL (7-20); CALCIUM 8.1 mg/dL (8.4-10.2); CARBON DIOXIDE 18 mmol/L (22-30); CHLORIDE 107 mmol/L (98-107); POTASSIUM 4.4 mmol/L (3.6-5.0)
[2020-04-08 06:44] LABS: PLATELET COUNT 28 10^3/uL (150-450)
[2020-04-08 06:50] LABS: GLUCOSE 67 mg/dL (75-110)
[2020-04-08] MEDS: NORMAL SALINE 1000 ML 1,000 ML IV PRN (07:37)
[2020-04-08 09:36] LABS: RETICULOCYTE COUNT (AUTO) 1.41 % (0.66-2.85)
[2020-04-08 09:42] LABS: INTERNATIONAL RATION (INR) 1.52; PROTHROMBIN TIME 18.5 SEC (11.4-15.4)
[2020-04-08 09:43] LABS: FIBRINOGEN 205 mg/dL (209-497)
[2020-04-08 09:50] LABS: IRON(TIBC) 80.6 ug/dL (49-181)
[2020-04-08] MEDS: LORATADINE 10 MG TABLET PO SCH (09:59)
[2020-04-08] MEDS: FAMOTIDINE 20 MG TABLET PO SCH (10:00)
[2020-04-08] MEDS: DOCUSATE SODIUM 100 MG CAPSULE PO SCH (10:00)
[2020-04-08] MEDS: MULTIVITAMIN TABLET PO SCH (10:00)
[2020-04-08] MEDS: FLUTICASONE NASAL SPRAY 50 MCG/SPRY 120 SPRAY/16 GM NASL SCH (10:00)
[2020-04-08] MEDS: NADOLOL 40 MG TABLET PO SCH (10:01)
[2020-04-08 10:52] LABS: FOLATE 7.35 ng/mL (>2.76)
[2020-04-08 11:56] LABS: PATH REVIEW PATHOLOGIST REVIEWED
[2020-04-08 12:21] VITALS: BP 118/56
--- NOTE | 2020-04-08 19:00 | Left Against Medical Advice ---
Against Medical Advice Admission Date/Time: 04/06/20 16:54 Primary Care Provider: VADIM KELLY Date of Patient Emigration: 04/08/20 - Diagnosis: (1) Chest pain Is this a current diagnosis for this admission?: Yes (2) ANDRE (acute kidney injury) Is this a current diagnosis for this admission?: Yes (3) Hyperkalemia Is this a current diagnosis for this admission?: Yes (4) Hyponatremia Is this a current diagnosis for this admission?: Yes (5) Cirrhosis Is this a current diagnosis for this admission?: Yes (6) Thrombocytopenia Is this a current diagnosis for this admission?: Yes - Summary: Summary: Please see Admission and Progress Notes as well. DONA SOLIS is a 65 M, who LEFT AGAINST MEDICAL ADVICE. The Patient was admitted on 04/06/20 16:54. Per H&P:DONA SOLIS is a 65 year old male with a past medical history of CAD, hyperlipidemia, cirrhosis, and esophageal varices who presented to the emergency department today with a complaint of left-sided chest pain worsened by movement (including extending his left arm and rolling over in bed) does not radiate, without further exacerbating or alleviating factors, and no associated symptoms. At the time of my assessment, the patient's chest discomfort had completely abated. He does continue to have fatigue and generalized weakness. He is established with Dr. Alaniz for cardiology. 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 Evaluation in the emergency department was remarkable for Thrombocytopenia, hyponatremia (NA 123.2), hyperkalemia (K6.6), metabolic acidosis (bicarb 17) ANDRE (CR 1.96/BUN 48), and an elevated total bili/AST/ALT/alk phos. Troponins were negative x2. Vital signs are stable. Chest x-ray is unremarkable. EKG revealed sinus bradycardia with peaked T waves. He was provided IV fluids, calcium gluconate, dextrose, insulin with follow-up chemistry showing improvement in his potassium to 5.6. At that time he was referred to the hospitalist service for further evaluation and management of the above-stated complaints and findings. Course: Patient is diuretics were held and he was provided gentle IV fluids. Serial chemistry checks reveals a consistent upward trend in his sodium. Patient's hyperkalemia has resolved, as well as, his acute kidney injury. The patient is tolerating p.o. intake and eating 100% of meals or more. In total, he received approximately 5.5 L of IV fluids. CBCs revealed a gradual downward trend in WBCs, hemoglobin, and platelets; likely dilutional related to IV fluids. However, the patient's platelets reached a low of 28. I did discuss his thrombocytopenia with Dr. Chan. He recommended obtaining a fibrinogen level as well as checking anemia panel. Anemia panel was unremarkable and fibrinogen returned at 205. As fibrinogen was also low, I did speak with Dr. Chan again who recommended patient not discharge until platelets began trending up. He was agreeable to consultation and would be available to see the patient first thing in the morning. Upon discussing this with the patient, he stated that he would be unable to stay any longer and elected to leave AGAINST MEDICAL ADVICE. We did discuss risks of bleeding and warning signs that should prompt him to return to the emergency department. He also stated that he would be agreeable to following up with Dr. Chan for repeat CBC and any other further evaluation early next week. Fortunately, we were able to make the patient an appointment for April 12. Patient was encouraged to return to the emergency department as needed for concerning symptoms.
== END 2020-04-08 13:05 | disposition left against medical advice (07) ==
LOC: ER 09:15 → INTOOBSV 16:54 → EH 16:54 → 5 19:28
PROVIDERS: ADMIT Hospitalist; ATTEND Registered Nurse
DX: R07.89 Other chest pain (principal); N17.9 Acute kidney failure, unspecified; E86.0 Dehydration; T50.2X5A Adverse effect of carbonic-anhydrase inhibitors, benzothiadiazides and other diuretics, initial encounter; E87.5 Hyperkalemia; E87.1 Hypo-osmolality and hyponatremia; K70.30 Alcoholic cirrhosis of liver without ascites; D69.6 Thrombocytopenia, unspecified; I25.10 Atherosclerotic heart disease of native coronary artery without angina pectoris; R00.1 Bradycardia, unspecified; E87.2 Acidosis; I85.00 Esophageal varices without bleeding; R64 Cachexia; F10.21 Alcohol dependence, in remission; R73.09 Other abnormal glucose; Z95.5 Presence of coronary angioplasty implant and graft; Z87.891 Personal history of nicotine dependence; Z60.2 Problems related to living alone
CPT/HCPCS: 93005 ×2; 99291; 96361; 96375; 96365; 36415 ×3; 82553; 82962 ×2; 82140; 82607; 82550; 82728; 82746; 83540; 83550; 85025; 85027 ×2; 85384; 85610 ×2; 85045; 80048; 80053 ×2; 81001; 84484; 83036; 80061; 71046; 93010 ×2; G0378 ×3; J0610; J3490 ×2; J1815; J7030 ×3; J7040

== ENCOUNTER 2020-05-10 07:51 | Day surgery (SDC) | payer OTHER ==
[2020-05-10 09:01] LABS: HEMATOCRIT 31.8 % (37.9-51.0); HEMOGLOBIN 10.9 g/dL (13.5-17.0); MEAN CORPUSCULAR HEMOGLOBIN 32.2 pg (27.0-33.4); MEAN CORPUSCULAR HGB CONC 34.4 g/dL (32.0-36.0); MEAN CORPUSCULAR VOLUME 94 fl (80-97); RED BLOOD COUNT 3.39 10^6/uL (4.35-5.55); RED CELL DISTRIBUTION WIDTH 14.4 % (11.5-14.0)
[2020-05-10 09:16] LABS: INTERNATIONAL RATION (INR) 1.25; PROTHROMBIN TIME 15.9 SEC (11.4-15.4)
[2020-05-10 09:18] LABS: PARTIAL THROMBOPLASTIN TIME 32.9 SEC (23.5-35.8)
[2020-05-10 09:21] LABS: BLOOD UREA NITROGEN 18 mg/dL (7-20)
[2020-05-10 09:35] LABS: PLATELET COUNT 49 10^3/uL (150-450)
[2020-05-10 09:39] LABS: ABSOLUTE LYMPHOCYTES# (MANUAL) 0.4 10^3/uL (0.5-4.7); ABSOLUTE MONOCYTES # (MANUAL) 0.3 10^3/uL (0.1-1.4); ANISOCYTOSIS SLIGHT; BASOPHILS % (MANUAL) 1 % (0-2); EOSINOPHILS % (MANUAL) 14 % (0-6); LYMPHOCYTES % (MANUAL) 10 % (13-45); MONOCYTES % (MANUAL) 10 % (3-13); POLYCHROMASIA SLIGHT; SEGMENTED NEUTROPHILS % (MAN) 63 % (42-78); TOTAL CELLS COUNTED 100
[2020-05-10 09:40] LABS: PLATELET COMMENT DECREASED
[2020-05-10] MEDS ORDERED: ALBUMIN HUMAN 75 GM/300 ML RTUINJ IV PRN (11:00)
--- NOTE | 2020-05-10 12:04 | RADIOLOGY REPORT (SQ) ---
EXAM DESCRIPTION: U/S ABD PARACENTESIS IMAGES COMPLETED DATE/TIME: 05/10/2020 11:02 am REASON FOR STUDY: ALCOHOLIC CIRRHOSIS OF LIVER WITH ASCITES R18.0 MALIGNANT ASCITES K70.31 ALCOHOL IC CIRRHOSIS OF LIVER WITH ASCITES COMPARISON: 03/01/2020 paracentesis RADIATION DOSE: None LIMITATIONS: None. PROCEDURE: Procedure, risks, benefit, and alternative explained to patient who then gave written con sent. The right lower abdominal wall marked using ultrasound guidance. A time-out was called for co rrect marking verification. Abdomen prepped and draped using sterile technique. Local anesthesia ach ieved using 5 ml of 1% lidocaine injection. A 6fr [id number] set was introduced into the perito chadwick cavity. Fluid was drained. The catheter was removed and entry site was covered with sterile ba ndage. No immediate complications noted. Images acquired during the procedure were stored on PACS. FINDINGS: ENTRY SITE: right lower quadrant. FLUID VOLUME: 4200 mL FLUID ANALYSIS: Clear straw-colored fluid OTHER: Therapeutic only. IMPRESSION: SUCCESSFUL ULTRASOUND GUIDED PARACENTESIS. COMMENT: Patient medication list reviewed:Yes- Quality ID# [id number]:Eligible professional attests to docu menting in the medical record they obtained, updated, or reviewed the patient's current medications. TECHNICAL DOCUMENTATION: JOB ID: [id number] 2010 [employer]- All Rights Reserved Reading location - IP/workstation name: [email or web address]
[2020-05-10 16:58] VITALS: BP 105/56
== END 2020-05-10 12:55 | disposition home or self-care (01) ==
LOC: RAD 07:51
PROVIDERS: ATTEND Internal Medicine Gastroenterology
DX: K70.31 Alcoholic cirrhosis of liver with ascites (principal)
CPT/HCPCS: 36415; 84520; 82565; 85025; 85610; 85730; 49083; P9047

== ENCOUNTER → 2020-06-02 | Outpatient (CLI) | payer OTHER ==
--- NOTE | 2020-06-02 12:48 | RADIOLOGY REPORT (SQ) ---
EXAM DESCRIPTION: CHEST 2 VIEWS IMAGES COMPLETED DATE/TIME: 06/02/2020 9:30 am REASON FOR STUDY: PLEURAL EFFUSION COMPARISON: All 04/06/2020 EXAM PARAMETERS: NUMBER OF VIEWS: two views TECHNIQUE: Digital Frontal and Lateral radiographic views of the chest acquired. RADIATION DOSE: NA LIMITATIONS: none FINDINGS: LUNGS AND PLEURA: Stable apical pleural calcifications. No opacities, masses or pneumotho rax. No pleural effusion. MEDIASTINUM AND HILAR STRUCTURES: No masses or contour abnormalities. HEART AND VASCULAR STRUCTURES: Heart normal size. No evidence for failure. BONES: No acute findings. HARDWARE: None in the chest. OTHER: No other significant finding. IMPRESSION: NO ACUTE RADIOGRAPHIC FINDING IN THE CHEST. TECHNICAL DOCUMENTATION: JOB ID: [id number] 2010 [employer] All Rights Reserved Reading location - IP/workstation name: [email or web address]
== END ==
LOC: RAD 09:20
PROVIDERS: ATTEND Specialist
DX: J90 Pleural effusion, not elsewhere classified (principal)
CPT/HCPCS: 71046

== ENCOUNTER 2020-06-30 08:29 | Day surgery (SDC) | payer BC, OTHER ==
[~2020-06-30 08:29] MED LIST changes: -ALBUMIN HUMAN 50 GM/200 ML RTUINJ IV PRN; +PROPOFOL INJ 200 MG/20 ML VIAL IV ONE
[2020-06-30 09:50] VITALS: BP 118/77
--- NOTE | 2020-06-30 11:38 | Operative Report ---
Operative Report DATE OF SURGERY: 06/30/20 Operative Report: The risks benefits and alternatives of the procedure explained to the patient in detail and informed consent is obtained.A GIF Olympus video scope was inserted into the patient's mouth and hypopharynx, the esophagus is identified intubated and insufflated, the scope was then advanced through the esophagus stomach and duodenum ,retroflexion maneuver is done, the esophagus stomach and first and second portions of the duodenum examined PREOPERATIVE DIAGNOSIS: History of cirrhosis rule out varices POSTOPERATIVE DIAGNOSIS: No variceal columns noted. Hiatal hernia. Gastric erosions status post biopsy rule out Helicobacter pylori OPERATION: EGD with biopsy SURGEON: EVELIN BECKFORD ANESTHESIA: LMAC TISSUE REMOVED OR ALTERED: As noted above. COMPLICATIONS: None. ESTIMATED BLOOD LOSS: None. INTRAOPERATIVE FINDINGS: As noted above. PROCEDURE: Patient tolerated the procedure well. No immediate postprocedure complications are noted. Patient is discharged in good condition. Discharge date 06/30/2020. Discharge diet: Regular. Discharge activity: Regular. 2 to 3-week follow-up to discuss findings. Patient is instructed call the office or proceed to the emergency room should there be any further plans questions. Wait on the pathology.
== END 2020-06-30 10:35 | disposition home or self-care (01) ==
LOC: OROUT 08:29
PROVIDERS: ATTEND Internal Medicine Gastroenterology
DX: K25.9 Gastric ulcer, unspecified as acute or chronic, without hemorrhage or perforation (principal); K44.9 Diaphragmatic hernia without obstruction or gangrene; K74.60 Unspecified cirrhosis of liver; I10 Essential (primary) hypertension; I25.2 Old myocardial infarction; Z79.899 Other long term (current) drug therapy; Z95.5 Presence of coronary angioplasty implant and graft
CPT/HCPCS: 43239; 88342 ×2; 88305 ×2; 00731; J2704; 731